=== PATIENT | male | born 1990 | race Caucasian/White ===

== ENCOUNTER 2020-05-18 17:10 | Emergency (ER) | payer BC, SELFPAY ==
[2020-05-18 17:36] VITALS: BP 139/95; PULSE 95; RESP 19; TEMP 36.6; O2SAT 98; BMI 20.3
--- NOTE | 2020-05-18 17:40 | HMH.EDUTC ---
[facility] [place] Clinical Impression: Encounter for laboratory testing for COVID-19 virus, Exposure to COVID-19 virus Disposition: Home, Self-Care Condition on Discharge: Good Instructions: Preventing the Spread of Coronavirus Discharge Instructions Additional Instructions: *Monitor Temp, Over the counter Motrin or Tylenol as directed/as needed Tylenol every 4 hours and Motrin every 6 hours (as long as your family doctor has told you that you can take it) for fever or pain. and straight to ER if unable to lower temp less than 101.0 after medication given *Warm salt water gargles may help to soothe the throat *Throat Lozenges *Warm fluids like tea with honey may help to soothe the throat *Sleep elevated *Humidifier/Vaporizer Follow up IMMEDIATELY for new or worsening symptoms or no Noticeable improvement over the next 48-72 hours. 911 for difficulty breathing or swallowing You was tested for today for COVID19 your test result should be back in the next 24-48 hours, you may call back on Friday to see if your test results are back and the result You was given a handout with instructions for Self Quarantine and Self isolation for while you wait on test results and what to do if they are positive Referrals: PCP,No [Primary Care Provider] - As needed Forms: Work/School Release Time of Disposition: 17:49 Medical Decision Making - Twan Inquiry Pt receiving controlled substance: No Twan was queried for this patient: No Vital Signs: 05/18/20 17:36 Temperature 97.9 F Temperature Source Oral Pulse Rate [Right Brachial] 95 H Respiratory Rate 19 Blood Pressure [Right Arm] 139/95 H Blood Pressure Mean [Right Arm] 109 Blood Pressure Source [Right Arm] Automatic Cuff Blood Pressure Position [Right Arm] Sitting 02 Sat by Pulse Oximetry 98 Oxygen Delivery Method Room Air Orders (Tests/Meds): ORDERS Category Date Time Status Covid-19 Nasal PCR Sendout [facility] Stat Lab 05/18/20 17:21 Ordered [facility] [place] HPI - General Stated complaint: COVID Exposure Time Seen by Provider: 05/18/20 17:40 Mode of Arrival: Ambulatory Source of Information: Patient Limitations: No Limitations Description of Symptoms (Recalled from Triage Doc. by RN): PATIENT REQUESTING COVID TEST D/T EXPOSURE. 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 and they are having him get tested States that he is not having any symptoms but works with the and they travel alot - Related Data Allergies Allergy/AdvReac Type Severity Reaction Status Date / Time No Known Allergies Allergy Verified 05/18/20 17:39 - Worker's Comp Is this a Worker's Comp case?: No [facility] History - Hepatitis A Screen Drug use history?: No High risk sexual behaviors?: No History of sexually transmitted infection?: No Currently employed?: No Childcare worker?: No Do you have indoor plumbing?: Yes Do you have electricity?: Yes Attestation statement:: This patient has been screened for Hepatitis A risk factors. I have reviewed the patient's past medical history: Yes - Social History Alcohol Intake: never Occupational Status: other ROS Obtained: Yes All systems reviewed & no additional complaints, Yes Systems reviewed as appropriate & no additional complaints - Constitutional Constitutional: Reports system reviewed and no additional complaints, except as docu, Denies body ache, Denies chills, Denies fever(s), Denies headache(s) - ENT Ears, Nose, Mouth, and Throat: Reports system reviewed and no additional complaints, except as docu, Denies nasal congestion, Denies nasal discharge, Denies sore throat - Cardiovascular Cardiovascular: R
[2020-05-18 17:59] VITALS: BP 139/95; PULSE 95; RESP 19; TEMP 36.6; O2SAT 98
[2020-05-20 16:08] LABS: Covid-19 Nasal PCR Sendout Lex Not Detected
== END 2020-05-18 18:00 | disposition home or self-care (01) ==
PROVIDERS: Emergency Provider Nurse Practitioner
DX: Z20.818 Contact with and (suspected) exposure to other bacterial communicable diseases (principal)
CPT/HCPCS: 99201; U0004

== ENCOUNTER 2023-09-15 20:55 | Inpatient (IN) | payer BC, SELFPAY ==
[2023-09-15] VITALS (7 sets, daily range): BP systolic 92–116; BP diastolic 63–85; PULSE 71–87; RESP 14–18; TEMP 36.2–36.6; O2SAT 97–99; BMI 21.3
--- NOTE | 2023-09-15 20:56 | PC.NURSE ---
EKG delayed due to another CP that came in at same time
--- NOTE | 2023-09-15 21:04 | XR_ITS ---
PROCEDURE INFORMATION: Exam: XR Chest Exam date and time: 09/15/2023 9:02 PM Age: 32 years old Clinical indication: Sternal or substernal pain; Additional info: Chest pain TECHNIQUE: Imaging protocol: Radiologic exam of the chest. Views: 2 views. COMPARISON: No relevant prior studies available. FINDINGS: Lungs: Normal pulmonary expansion. Pulmonary vasculature grossly normal. No gross pulmonary infiltrates or edema pattern. Pleural spaces: No pleural effusion. No pneumothorax. Heart/Mediastinum: Heart size normal. No tracheal/mediastinal shift. Bones/joints: No acute osseous abnormalities are identified. IMPRESSION: No acute thoracic process.
--- NOTE | 2023-09-15 21:06 | ECG_ITS ---
APPROVED REPORT Exam: Resting ECG HR:71 bpm ECG Measurements Heart Rate 71 AXES OH 135 P 62 QRSd 90 QRS 78 QT 343 T 62 QTc 366 Conclusion SINUS RHYTHM WITH MARKED SINUS ARRHYTHMIA BORDERLINE ECG UNCONFIRMED REPORT Electronically signed by : SATYA DILLON, 09/16/2023 08:25:23
--- NOTE | 2023-09-15 21:12 | ED_ITS ---
Discharge Plan Disposition Patient Disposition: Admitted Prescriptions Prescriptions: No Action No Known Home Medications Clinical Impressions Clinical Impression: Myopericarditis Discharge ED Provider: Babatunde Addison [facility] General Chief Complaint: Chest Pain Stated Complaint: CP Time Seen by Provider: 09/15/23 20:59 Mode of Arrival: Family Vehicle Source of Information: Patient Limitations: No Limitations Description of Symptoms (Recalled from ER Triage Doc. by RN): presents with ongoing chest discomfort that patient isolates to the mid-sternum, denying radiation to other location. states his daughter had flu b during the last cou ple of weeks, and he spent the day yesterday vomiting intermittently; the chest discomfort started and he 'thought he had just pulled something'. Continued throughout today, no longer accompanied by nausea. No PMH. No PSH. States he was sitting in his office at the time it began. Denies cough congestion. AFebrile. Took tylenol/ibu a couple of hours ago along with an antacid. History of Present Illness HPI narrative: Patient is a 32-year-old male presents today with chest pain. Denies any cough but did have a fever of 100.5 earlier today. Recently had nausea vomiting and diarrhea on Friday states he was vomiting quite a bit of bile at that time and had some burning but no symptoms have since resolved. No exertional complaints nonradiating no diaphoresis or significant dyspnea associated with this. No history of any blood clotting. States he recently was on a plane ride but was only 1 to 2 hours no leg swelling no hemoptysis no history of DVT or PE. No family history of any sudden cardiac or any other significant family history. He denies any cardiopulmonary history as well. Took 40 mg of ibuprofen 2 hours prior to arrival. No oppositionality to this does have a little bit of worsening pain with inspiration. Related Data Home Medications Medication Instructions Recorded Confirmed No Known Home Medications 09/15/23 09/15/23 Allergies Allergy/AdvReac Type Severity Reaction Status Date / Time No Known Allergies Allergy Verified 05/18/20 17:39 [facility] Disclaimer: The information contained in this section may have been updated after the patient was seen, as this information can be updated by other users. Social History Smoking Status: Unknown if ever smoked alcohol intake: never current occupational status: other Travel in the last 8 weeks: None ROS Obtained: Yes All systems reviewed & no additional complaints except as documented Physical Exam General General appearance: alert Respiratory Respiratory exam: Present normal lung sounds bilaterally Cardiovascular Cardiovascular exam: Present regular rate Neurological Exam Neurological exam: Present alert and oriented X3 HEART Score HEART Score HEART Score assessment performed?: Yes History (anamnesis): Slightly suspicious ECG: Normal Age: <45 years Risk factors: No known risk factors Troponin: > 3x normal limit HEART Score: 2 Procedures Miscellaneous Procedure Procedure Performed: Limited cardiac ultrasound Indication: Chest pain Identified structures: The heart was visualized in the parasternal long axis, parastenal short axis, apical four chamber and subxyphiod views. The IVC was visualized in the short axis and long axis at its entry into the right atrium. Findings: No pericardial effusion no depression of LVEF no significant right heart strain Impression: Normal bedside limited ultrasound of the heart Images were saved to permanent archive The study was technically adequate CPT: 55586-32 This study was performed by me, and I personally interpreted all images/videos. Based on my clinical judgement, these images were adequate and did not necessitate further imaging. Critical Care Critical Care Time Critical Care Time: Yes Attestation: On 09/15/23, the high probability of a clinically significant, sudden or life threatening deterioration of the following system(s) required my full and direct attention, intervention and personal management. The time I documented below is in addition to time spent performing reported procedures but includes the following listed in this critical care notation. Total Time Total Critical Care Time: 35 Medical Decision Making Twan Inquiry Pt receiving controlled substance: No Vital Signs Vital Signs: 09/15/23 20:58 Temperature 97.2 F L Temperature Source Oral Pulse Rate [Right Brachial] 74 Respiratory Rate 16 Blood Pressure [Right Arm] 116/85 Blood Pressure Mean [Right Arm] 95 Blood Pressure Source [Right Arm] Automatic Cuff Blood Pressure Position [Right Arm] Sitting 02 Sat by Pulse Oximetry 99 Oxygen Delivery Method Room Air Lab Data Lab results reviewed: Yes I reviewed the patient's lab results. Labs: Lab Results 09/15/23 21:00: WBC 10.9 H, RBC 4.74, Hgb 13.5 L, Hct 40.0 L, MCV 84.5, MCH 28 .5, MCHC 33.7, RDW 12.9, Plt Count 258, MPV 7.8, Neut % (Auto) 77.0, Lymph % (Auto) 16.8, Mcpherson % (Auto) 5.7, Eos % (Auto) 0.3, Baso % (Auto) 0.3, Neut # (Auto) 8.4 H, Lymph # (Auto) 1.8, Mcpherson # (Auto) 0.6, Eos # (Auto) 0.0, Baso # (Auto) 0.0, Sodium 134 L, Potassium 3.3 L, Chloride 100, Carbon Dioxide 27, Anion Gap 10.3, BUN 9, Creatinine 0.80, Estimated Creat Clear 116, Estimated GFR 112, Est GFR ( Amer) 136, Glucose 106 H, Calcium 8.9, Total Bilirubin 1.1, AST 49, ALT 30, Alkaline Phosphatase 74, Troponin I 4.79 H, C-Reactive Protein 58.7 H, Total Protein 6.5, Albumin 4.1, Globulin 2.4, Albumin/Globulin Ratio 1.7 09/15/23 21:00 09/15/23 21:00 Response Orders (Tests/Meds): ED MEDICATIONS Generic Name Dose Route Start Last Admin Trade Name Freq PRN Reason Stop Dose Admin Lactated Ringer's 1,000 mls @ 999 mls/hr 09/15/23 22:14 09/15/23 22:17 Lactated Ringer's 1000 Ml Bag IV 09/15/23 23:14 999 mls/hr .Q1H1M ONE Administration Ondansetron HCl 4 mg 09/15/23 22:14 09/15/23 22:17 Ondansetron 4mg/2ml Vial IV 09/15/23 22:15 4 mg ONCE ONE Administration Discontinued Medications Generic Name Dose Route Start Last Admin Trade Name Freq PRN Reason Stop Dose Admin Belladonna Alkaloids 60 ml 09/15/23 21:08 09/15/23 21:15 Belladonna Alkaloids 60 Ml Ml PO 09/15/23 21:09 60 ml ONCE ONE Administration Colchicine 0.6 mg 09/15/23 21:53 09/15/23 22:17 Colchicine 0.6mg Tablet PO 09/15/23 21:54 0.6 mg ONCE ONE Administration Morphine Sulfate 4 mg 09/15/23 21:52 09/15/23 22:17 Morphine 4mg/Ml Syringe IV 09/15/23 21:53 4 mg ONCE ONE Administration ORDERS Category Date Time Status POCUS Point of Care (ER Only) Stat Exams 09/15/23 21:43 Ordered XR chest 2V Stat Exams 09/15/23 21:04 Completed CRP [C-Reactive Protein] Stat Lab 09/15/23 21:00 Completed Complete Blood Count Auto Diff Stat Lab 09/15/23 21:00 Completed Comprehensive Metabolic Panel Stat Lab 09/15/23 21:00 Completed ESR [Erythrocyte Sedimentation Rate] Stat Lab 09/15/23 21:00 Received Full Resp Panel w/COVID ([facility]) Routine Lab 09/15/23 21:44 Received Trop I [Troponin I] Stat Lab 09/15/23 21:00 Completed Troponin I Q3H Lab 09/16/23 00:15 Ordered Troponin I Q3H Lab 09/16/23 03:15 Ordered ECG Data Tracing #1: Attestation: I reviewed this ECG and interpreted as documented below: ECG Narrative: Ventricular rate of 71 no acute ischemic changes noted no evidence of pericarditis or significant ventricular ectopy or other ectopy no conduction abnormalities noted there is normal axis there is a sinus arrhythmia this is nonspecific MDM Narrative Medical Decision Narrative: Patient is a 32-year-old male presents today with chest pain. Does have a slight pleuritic component to this had a low-grade fever prior to arrival with nausea vomiting diarrhea preceded this. Differential includes myocarditis pericarditis pleurisy pneumonia esophageal pathology such as reflux or esophagitis in the setting of recent gastroenteritis. A GI cocktail has been ordered both for diagnostic and therapeutic reasons. Incredibly unlikely that this is emergent medical condition. Patient is PERC negative will not workup for pulmonary embolism further. EKG was performed which I first interpreted which did not show any significant abnormality. Will be documented above. Single troponin with 8 hours of constant symptoms will rule out acute coronary syndrome any myocardial involvement as well. Chest x-ray will also be performed and will reassess after this workup. Chest x-ray performed which I personally interpreted which shows no acute cardiopulmonary abnormality. Assessment 10:18 PM patient had no improvement with GI cocktail at this point troponin came back significantly elevated. After further discussion I had with the patient he does seem to have had a recent exposure to his daughter who had flu B he also has had some improvement with sitting forward and worsening with lying back and has slight pleuritic component to this. This is most likely myopericarditis in the setting of a recent flu exposure or viral exposure with his other symptoms that he had recently. He is already had NSAIDs added a dose of colchicine on and gave him morphine for further symptomatic control. Limited bedside ultrasound was also done which showed no pericardial effusion and no significant heart failure or LVEF depression. I discussed the case with Dr. Clements he agreed with intervention they will be consulted tomorrow and the patient will need a formal echo tomorrow. I also discussed with William with hospital medicine who understands this plan patient also agreeable to this plan and was admitted in stable condition. Patient after further review of EKGs I do think that there is some VT depression throughout and mild VT elevation in aVR which is consistent with pericarditis. Again still no evidence of ischemia both from historical standpoint or an EKG standpoint.
[2023-09-15] MEDS: BELLADONNA ALKALOIDS 60 ML ML PO (21:15)
[2023-09-15 21:19] LABS: Basophils % 0.3 % (0.1-2.0); Chloride 100 mmol/L (98-107); Eosinophils % 0.3 % (0.1-12.0); Hemoglobin 13.5 g/dL (14.1-18.0); Lymphocytes # 1.8 K/mm3 (0.7-4.5); Lymphocytes % 16.8 % (10-50); Mean Corpuscular HGB Conc 33.7 g/dL (31.8-35.4); Mean Corpuscular Hemoglobin 28.5 pg (27.0-31.2); Mean Corpuscular Volume 84.5 fl (80-94); Mean Platelet Volume 7.8 fl (7.4-10.4); Monocytes # 0.6 K/mm3 (0.1-1.0); Monocytes % 5.7 % (1.7-9.3); Neutrophils # 8.4 K/mm3 (1.8-7.8); Platelet Count 258 K/mm3 (142-424); Red Blood Count 4.74 M/mm3 (4.60-6.20); Red Cell Distribution Width 12.9 % (11.5-17.5); White Blood Count 10.9 K/mm3 (4.8-10.8)
[2023-09-15 21:20] LABS: Potassium 3.3 mmoL/L (3.5-5.1); Sodium 134 mmol/L (136-145)
[2023-09-15 21:22] LABS: Alanine Aminotransferase 30 U/L (12-78); Aspartate Amino Transferase 49 U/L (17-59); Blood Urea Nitrogen 9 mg/dl (9-20); Creatinine Clearance Estimated 116 mL/min (50-200); Estimated Glomerular Filt Rate 112 ml/min (>60); GFR (African American) 136 ML/MIN (>60)
[2023-09-15 21:23] LABS: Albumin Level 4.1 g/dl (3.5-5.0); Albumin/Globulin Ratio 1.7 (1.1-1.8); Alkaline Phosphatase 74 U/L (38-126); Anion Gap 10.3 mEq/L (5-15); Bilirubin,Total 1.1 mg/dl (0.2-1.3); Calcium 8.9 mg/dl (8.4-10.2); Carbon Dioxide 27 mmol/L (22.0-30.0); Globulin 2.4 g/dL (1.3-3.2); Glucose 106 mg/dl (74-100); Total Protein,Serum 6.5 g/dl (6.3-8.2)
[2023-09-15 21:42] LABS: Troponin I 4.79 ng/ml (0.00-0.034)
--- NOTE | 2023-09-15 21:43 | PC.NURSE ---
received call from quentin in lab; trop 4.79. notified JERRICA Addison MD. at bedside.
[2023-09-15 21:52] LABS: Adenovirus,PCR Not Detected (NotDetected); Coronavirus 19, PCR Not Detected (NotDetected); Coronavirus 229E Not Detected (NotDetected); Coronavirus NL63 Not Detected (NotDetected); Coronavirus OC43 Not Detected (NotDetected); Coronovirus HKU1,PCR Not Detected (NotDetected); Human Metapneumovirus Not Detected (NotDetected); Influenza A, PCR Not Detected (NotDetected); Influenza AH1, 2009 Not Detected (NotDetected); Influenza AH1, PCR Not Detected (NotDetected); Influenza AH3,PCR Not Detected (NotDetected); Influenza B, PCR Not Detected (NotDetected); Parainfluenza 1, PCR Not Detected (NotDetected); Parainfluenza 2, PCR Not Detected (NotDetected); Parainfluenza 3, PCR Not Detected (NotDetected); Parainfluenza 4, PCR Not Detected (NotDetected); Respiratory Syncytial Virus Not Detected (NotDetected); Rhinovirus/Enterovirus Not Detected (NotDetected)
[2023-09-15 22:08] LABS: C-Reactive Protein 58.7 mg/L (0-4)
--- NOTE | 2023-09-15 22:08 | PC.NURSE ---
on phone with hospitalist
[2023-09-15] MEDS: COLCHICINE 0.6MG TABLET 0.599999999999999978 MG PO (22:17)
[2023-09-15] MEDS: ONDANSETRON 4MG/2ML VIAL 4 MG IV (22:17)
[2023-09-15] MEDS: LACTATED RINGERS 1000ML 1,000 ML 999 ML IV (22:17)
[2023-09-15] MEDS: MORPHINE 4MG/ML SYRINGE 4 MG IV (22:17)
--- NOTE | 2023-09-15 22:18 | PC.NURSE ---
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
--- NOTE | 2023-09-15 22:40 | PC.NURSE ---
Patient arrived to unit via wheelchair at this time
[2023-09-15 22:46] LABS: Erythrocyte Sedimentation Rate 16 mm/hr (0-15)
[2023-09-15 23:27] LABS: Creatine Kinase 218 U/L (55-170); Magnesium 1.9 mg/dl (1.6-2.3)
--- NOTE | 2023-09-15 23:36 | EXP.HP ---
History of Present Illness *Admission Date: 09/15/23 *Reason for visit:: Myopericarditis *History of present illness: 32 year old male presented to the ED for c/o CP that started at 1 p.m. The pt states the pain was located in the center of his chest. PMHX of GERD. Pt states he had a 24 hour GI virus over the weekend. He was having nausea, vomiting, and diarrhea. The pt his ED workup reveals a ESR of 16, potassium of 3.3, CK of 218, CRP of 58.7. His initial troponin is 4.79. His chest xray is unremarkable. The ED physician consulted the Hospitalist team for further medical management. The pt will have an echo ordered for the morning and a cardiology consult placed. He was given colchicine and morphine in the ED. The pt reports taking Motrin prior to arrival to ED. [facility] Disclaimer: The information contained in this section may have been updated after the patient was seen, as this information can be updated by other users. Medical History (Updated 09/16/23 @ 14:54 by Dina Sutton APRN) Elevated troponin Non-STEMI (non-ST elevated myocardial infarction) Viral myocarditis Social History (Updated 09/15/23 @ 22:55 by Sandra Dugan RN) Smoking Status: Unknown if ever smoked alcohol intake: never current occupational status: employed and other Travel in the last 8 weeks: None Review of Systems Review of Systems Review of systems:: pertinent systems reviewed and negative unless documented below *Cardiovascular Cardiovascular: Reports chest pain Meds Home Medications and Allergies Home Medications Medication Instructions Recorded Confirmed Type No Known Home Medications 09/15/23 09/15/23 History New Prescriptions to Start Prescriptions: Allergies Allergy/AdvReac Type Severity Reaction Status Date / Time No Known Allergies Allergy Verified 05/18/20 17:39 Exam Data for Last 24 hours Vital signs and Labs for Last 24 Hours: Temp Pulse Resp BP Pulse Ox O2 Del Method 97.8 F 71 18 95/65 L 97 Room Air 09/15/23 22:28 09/15/23 23:22 09/15/23 23:11 09/15/23 23:11 09/15/23 23:11 09/15/23 23:11 Laboratory Results - last 24 hr 09/15/23 21:00: WBC 10.9 H, RBC 4.74, Hgb 13.5 L, Hct 40.0 L, MCV 84.5, MCH 28.5, MCHC 33.7, RDW 12.9, Plt Count 258, MPV 7.8, Neut % (Auto) 77.0, Lymph % (Auto) 16.8, Carlton % (Auto) 5.7, Eos % (Auto) 0.3, Baso % (Auto) 0.3, Neut # (Auto) 8.4 H, Lymph # (Auto) 1.8, Carlton # (Auto) 0.6, Eos # (Auto) 0.0, Baso # (Auto) 0.0, ESR 16 H, Sodium 134 L, Potassium 3.3 L, Chloride 100, Carbon Dioxide 27, Anion Gap 10.3, BUN 9, Creatinine 0.80, Estimated Creat Clear 116, Estimated GFR 112, Est GFR ( Amer) 136, Glucose 106 H, Calcium 8.9, Magnesium 1.9, Total Bilirubin 1.1, AST 49, ALT 30, Alkaline Phosphatase 74, Total Creatine Kinase 218 H, Troponin I 4.79 H, C-Reactive Protein 58.7 H, Total Protein 6.5, Albumin 4.1, Globulin 2.4, Albumin/Globulin Ratio 1.7 I & O for Last 24 hours: Intake & Output 09/12/23 09/13/23 09/14/23 09/15/23 23:59 23:59 23:59 23:59 Weight 61.83 kg Constitutional Constitutional: no acute distress *Routine HEENT Exam Head: Present normocephalic Eye: Present EOMI ENT: Present mucous membranes moist *Routine Neck Exam Neck: Present full ROM *Routine Respiratory Exam Respiratory: Present symmetric chest movement *Routine Cardiovascular Exam Cardiovascular: Present RRR *Routine Abdominal Exam Abdominal: Present soft and normoactive bowel sounds; Absent tenderness *Routine Rectal Exam Rectal:: deferred *Routine Genitalia Exam Genitalia:: deferred *Routine Extremities Exam Extremities: Present full ROM *Routine Skin Exam Skin: Present intact *Routine Neurological Exam Neurological: Present alert and oriented X3 Assessment and Plan *Assessment and plan (1) Myopericarditis: Status: Acute Category: Medical Code(s): I31.9 - Disease of pericardium, unspecified (2) Hypokalemia: Status: Acute Category: Medical Code(s): E87.6 - Hypokalemia (3) GERD (gastroesophageal reflux disease): Status: Acute Category: Medical Code(s): K21.9 - Gastro-esophageal reflux disease without esophagitis Plan 32 year old male presented to the ED for c/o CP that started at 1 p.m. The pt states the pain was located in the center of his chest. PMHX of GERD. Pt states he had a 24 hour GI virus over the weekend. He was having nausea, vomiting, and diarrhea. The pt his ED workup reveals a ESR of 16, potassium of 3.3, CK of 218, CRP of 58.7. His initial troponin is 4.79. His chest xray is unremarkable. The ED physician consulted the Hospitalist team for further medical management. The pt will have an echo ordered for the morning and a cardiology consult placed. He was given colchicine and morphine in the ED. The pt reports taking Motrin prior to arrival to ED. MYOPERICARDITIS -Presented with chest pain that started at 1 p.m. Recent viral illness on Friday lasting 24 hrs -ED workup reveals a ESR of 16, potassium of 3.3, CK of 218, CRP of 58.7. -His initial troponin is 4.79 -> will continue to trend -Cardiology consult placed, thank you for the help!!! -continue colchicine and Motrin -Echo pending for the morning HYPOKALEMIA -K 3.3 -replace with 20 mEq -repeat bmp in the morning GERD -pt states he takes omeprazole at home around 3 times a week prior to eating spicy foods FULL CODE NPO @ MIDNIGHT DVT: SCD Rounded on patient after nurse practitioner. Personally examined and interviewed patient. Agree with exam findings and care plan as documented.
[2023-09-16] VITALS (20 sets, daily range): BP systolic 83–116; BP diastolic 48–79; PULSE 61–93; RESP 14–18; TEMP 36.8–37.1; O2SAT 95–100; BMI 21.7
[2023-09-16] MEDS: POTASSIUM CHLORIDE 20MEQ TAB 20 MEQ PO (00:35)
--- NOTE | 2023-09-16 00:47 | PC.NURSE ---
Reported critical trop 15.30 to FRED Thomas at this time. No new orders received.
--- NOTE | 2023-09-16 04:49 | PC.NURSE ---
Patient was new admit this shift. Patient voiced no chest pain thus far in shift. Patient's HR ranges from 65-78. Patient remains A/O x3. Patient is able to ambulate independently to bathroom. Call light within reach.
[2023-09-16 09:24] LABS: Basophils % 0.8 % (0.1-2.0); Eosinophils # 0.1 K/mm3 (0.0-0.4); Eosinophils % 1.1 % (0.1-12.0); Hematocrit 38.5 % (42.0-52.0); Lymphocytes % 38.3 % (10-50); Mean Corpuscular HGB Conc 33.7 g/dL (31.8-35.4); Mean Corpuscular Hemoglobin 28.4 pg (27.0-31.2); Mean Corpuscular Volume 84.2 fl (80-94); Mean Platelet Volume 8.6 fl (7.4-10.4); Monocytes # 0.4 K/mm3 (0.1-1.0); Monocytes % 8.1 % (1.7-9.3); Neutrophils # 2.7 K/mm3 (1.8-7.8); Neutrophils % 51.7 % (37.0-80.0); Platelet Count 251 K/mm3 (142-424); Red Blood Count 4.57 M/mm3 (4.60-6.20); Red Cell Distribution Width 12.8 % (11.5-17.5); White Blood Count 5.1 K/mm3 (4.8-10.8)
[2023-09-16 09:34] LABS: Alanine Aminotransferase 29 U/L (12-78); Albumin Level 3.7 g/dl (3.5-5.0); Albumin/Globulin Ratio 1.6 (1.1-1.8); Alkaline Phosphatase 55 U/L (38-126); Anion Gap 7.7 mEq/L (5-15); Aspartate Amino Transferase 78 U/L (17-59); Bilirubin,Total 1.1 mg/dl (0.2-1.3); Blood Urea Nitrogen 6 mg/dl (9-20); Calcium 8.7 mg/dl (8.4-10.2); Carbon Dioxide 29 mmol/L (22.0-30.0); Chloride 105 mmol/L (98-107); Creatinine Clearance Estimated 117 mL/min (50-200); Estimated Glomerular Filt Rate 112 ml/min (>60); GFR (African American) 136 ML/MIN (>60); Globulin 2.3 g/dL (1.3-3.2); Glucose 93 mg/dl (74-100); Potassium 3.7 mmoL/L (3.5-5.1); Sodium 138 mmol/L (136-145)
[2023-09-16] MEDS: COLCHICINE 0.6MG TABLET 0.599999999999999978 MG PO (09:34)
--- NOTE | 2023-09-16 12:59 | CT_ITS ---
APPROVED REPORT [employer] Preflight: CLINICAL INDICATION Chest Pain, elevated troponin TECHNIQUE Image Acquisition: A 128 slice MDCT scanner (Molecular Imaginga View) was used for data acquisition. A noncontrast coronary calcium scan was performed. A CT attenuation threshold of 130 Hounsfield units (HU) was used for the detection of calcium in contiguous voxels of 1 sq mm in area to be counted as individual lesions. Bolus tracking in the ascending aorta with a threshold of 180 HU was performed. Immediately afterwards, ECG synchronized cardiac CT was then performed from the cardiac base to apex using retrospective gating with ECG tube current modulation. A total of 85 mL of Isovue 370 mg/mL contrast medium was administered at 5 mL/sec followed by a saline flush using a biphasic injection protocol. A tube voltage of 120 KVp was used. The patient received the following medications prior to the cardiac CT. 25 mg of oral metoprolol 15 mg of intravenous metoprolol 15 mg of oral ivabradine 0.4 mg of sublingual nitroglycerin The average heart rate at the time of acquisition was 60 bpm and regular. Image Reconstruction Transaxial images were reconstructed at 0.67 mm slide thickness. Data was reviewed interactively on an advanced workstation capable of 2 and 3-dimensional displays in all conventional reconstruction formats, including multiplanar reformations, maximum intensity projections, curved multiplanar reformations, and volume rendered reconstructions. When applicable, selected routine images describing the relevant coronary anatomy and pathology were saved and sent to PACS. Complications None Technical Quality Overall image quality was good. Coronary artery opacification was adequate. Total DLP (Dose-Length Product) is 1491.8 mGy-cm. The reported value represents the total of one or more individual components during the CT acquisition of this date and at this time, and as such, the same value may appear in more than one CT report depending on the interpreting/reporting physicians. COMPARISON None FINDINGS CT Coronary Calcium Scoring LMA (Left Main Artery) = 0 LAD (Left Anterior Descending) = 0 LCX (Left Coronary Circumflex) = 0 RCA (Right Coronary Artery) = 0 Total Calcium Score = 0 using the AJ-130 method. The interpretation of the calcium heart score is based on the following continuum*: 0 = no calcified plaque detected (risk of coronary artery disease is very low ??? less than 5%) 1-10 = calcium detected in extremely minimal levels (risk of coronary diseases is still low ??? less than 10%) 11-100 = mild levels of plaque detected with certainty (mild or minimal narrowing of heart arteries is likely) 101-400 = definite,at least moderate levels of plaque detected (relatively high risk of a heart attack within 3-5 years) >401-999 = extensive levels of plaque detected (high risk of heart attack, high levels of vascular disease are present, high likelihood of at least one significant coronary narrowing) *The calcium heart score quantifies the burden of coronary calcification/plaque in the coronary arteries. The calcium heart score is not able to evaluate the presence or burden of non-calcified (i.e. soft) plaque. There is no identifiable calcification in the aortic valve, mitral annulus or mitral valve, pericardium, or myocardium. Coronary CT Angiography The coronary arterial system is right dominant. Quantitative Stenosis Grading: Left Main (LM): The left main originates normally from the left sinus of Valsalva. The LM bifurcates into the left anterior descending artery and left circumflex artery. The LM is patent with no evidence of atherosclerosis. Left Anterior Descending (LAD) and Diagonal Branches: The LAD gives off 2 diagonal branch(es). The LAD and its branches are patent with no evidence of atherosclerosis. There is no evidence of LAD-myocardial bridge. Left Circumflex (LCX) and Obtuse Marginals (OM): The LCX gives off 1 Obtuse Marginal (OM) branch. The LCX and its branches are patent with no evidence of atherosclerosis. Right Coronary Artery (RCA): The RCA originates normally from the right sinus of Valsalva. The RCA gives off a posterior descending artery (PDA) and posterolateral (PL) branches. The RCA and its branches are patent with no evidence of atherosclerosis. Non-Coronary Cardiac Findings: Analysis of the left ventricular (LV) structure and function was performed after 3-D reconstruction of the LV from axial images, with user-corrected automatic contouring for assessment of LV volumes and user-defined reconstruction from oblique planes for measurement of 3-D cardiac structure and function. -The left ventricle systolic function cannot be calculated due to technical difficulty during acqusition of the study images. -There is no left atrial appendage filling defect. Two right pulmonary veins and two left pulmonary veins drain normally into the left atrium. -No pericardial thickening or calcification. -Central and branch pulmonary arteries in the [id number] are unremarkable. -Thoracic aorta within the visualized thoracic aortic-branches in the [id number] is unremarkable. Extracardiac Structures No significant extra-cardiac findings. Note, however, that this study is focused on the cardiac findings. IMPRESSION -No coronary calcification with an Agatston score = 0 using the AJ-130 method. -No evidence of significant flow-limiting atherosclerosis of the coronary arteries. -No evidence of coronary anomalies or myocardial bridge. -CAD-RADS 0. Management recommendations per ACC/AHA guidelines*, as clinically appropriate. *Recommendations: CAD RADS 0: Reassurance. Consider non-atherosclerotic causes of chest pain. CAD RADS 1: Consider non-atherosclerotic causes of chest pain. Consider preventive therapy and risk factor modification. CAD RADS 2: Consider non-atherosclerotic causes of chest pain. Consider preventive therapy and risk factor modification, particularly for patients with nonobstructive plaque in multiple segments. CAD RADS 3: Consider further functional testing. Consider symptom-guided anti-ischemic and preventive pharmacotherapy as well as risk factor modification per published guideline statements. CAD RADS 4A: Consider further functional testing or invasive coronary angiography with revascularization per published guideline statements. Consider symptom-guided anti-ischemic and preventive pharmacotherapy as well as risk factor modification per published guideline statements. CAD RADS 4B: Invasive coronary angiography recommended with revascularization per published guideline statements. Consider symptom-guided anti-ischemic and preventive pharmacotherapy as well as risk factor modification per published guideline statements. CAD RADS 5: Consider invasive angiography and/or viability assessment with revascularization per published guideline statements. Consider symptom-guided anti-ischemic and preventive pharmacotherapy as well as risk factor modification per published guideline statements. CRITICAL RESULT None COMMUNICATION Per this written report The coronary and cardiac findings of this CCTA were reviewed, reported, and signed by Roland Meeks MD ([employer]) Conclusion Electronically signed by : Patti Meeks MD 09/16/2023 18:02:13
[2023-09-16] MEDS: IVABRADINE 7.5 MG 15 MG PO (13:09)
--- NOTE | 2023-09-16 13:09 | PC.NURSE ---
1309 meds given for CTA, HR 104
[2023-09-16] MEDS: METOPROLOL TARTRATE 25MG TABLET 25 MG PO (13:10)
[2023-09-16] MEDS: NITROGLYCERIN 0.4MG SL TABLET 0.400000000000000022 MG SL (13:11)
[2023-09-16] MEDS: METOPROLOL TARTRATE 5MG/5ML VIAL 5 MG IV ×3 (14:05→15:05)
--- NOTE | 2023-09-16 14:46 | EXP.CARD.CON ---
History of Present Illness History of Present Illness Consult date: 09/16/23 Requesting physician: Lorraine Gambino Consult reason: chest pain Chief complaint: chest pain History of present illness: This is a 32-year-old white gentleman who presented to the emergency department with complaints of chest pain. He states that he was at work yesterday when he had sudden onset of chest pain in the center of his chest. He describes it as a burning heartburn sensation. He states that he took an acids and Tylenol with no improvement in the pain. The patient states that he decided to come to the emergency department last night around 8:30 PM. He states that when he was given the morphine in the emergency department is when he had resolution of the chest pain. Nothing worsened or improved the pain He states that the pain did not radiate. He states that he did have some some diaphoresis and clamminess associated with the chest pain. He denies any shortness of breath or nausea. However, he does report over the weekend that he did have a GI bug with some nausea vomiting and diarrhea. He states that he has never had symptoms like this before. He denies any fever, chills, PND or orthopnea. He denies any shortness of breath or lower extremity edema. He does report that sitting forward made the chest pain slightly better when he was asked this in the emergency department. [facility] Disclaimer: The information contained in this section may have been updated after the patient was seen, as this information can be updated by other users. Medical History (Updated 09/16/23 @ 14:54 by Dina Sutton APRN) Elevated troponin Non-STEMI (non-ST elevated myocardial infarction) Viral myocarditis Social History (Updated 09/15/23 @ 22:55 by Sandra Dugan RN) Smoking Status: Unknown if ever smoked alcohol intake: never current occupational status: employed and other Travel in the last 8 weeks: None Review of Systems Review of Systems Review of systems:: pertinent systems reviewed and negative unless documented below Constitutional Constitutional: Reports system reviewed and no additional complaints, except as documented Eyes Eyes: Reports system reviewed and no additional complaints, except as documented ENT Ears, Nose, Mouth, and Throat: Reports system reviewed and no additional complaints, except as documented *Cardiovascular Cardiovascular: Reports system reviewed and no additional complaints, except as documented, Reports chest pain, Reports chest pain at rest, Reports chest pain with activity, Reports diaphoresis and Denies radiating jaw, neck or arm pain *Respiratory Respiratory: Reports system reviewed and no additional complaints, except as documented *Gastrointestinal Gastrointestinal: Reports system reviewed and no additional complaints, except as documented *Genitourinary Genitourinary: Reports system reviewed and no additional complaints, except as documented *Musculoskeletal Musculoskeletal: Reports system reviewed and no additional complaints, except as documented Integumentary/Breasts Skin/Breast: Reports system reviewed and no additional complaints, except as documented *Neurologic Neurologic: Reports system reviewed and no additional complaints, except as documented Psychiatric Psychiatric: Reports system reviewed and no additional complaints, except as documented Endocrine Endocrine: Reports system reviewed and no additional complaints, except as documented Hematologic/Lymphatic Hematologic/Lymphatic: Reports system reviewed and no additional complaints, except as documented Allergic/Immunologic Allergic/Immunologic: Reports system reviewed and no additional complaints, except as documented Exam Data for Last 24 hours Vital signs and Labs for Last 24 Hours: Temp Pulse Resp BP Pulse Ox O2 Del Method 98.6 F 64 16 116/79 97 Room Air 09/16/23 12:00 09/16/23 14:35 09/16/23 12:00 09/16/23 12:00 09/16/23 12:00 09/16/23 13:00 Laboratory Results - last 24 hr 09/15/23 21:00: WBC 10.9 H, RBC 4.74, Hgb 13.5 L, Hct 40.0 L, MCV 84.5, MCH 28.5, MCHC 33.7, RDW 12.9, Plt Count 258, MPV 7.8, Neut % (Auto) 77.0, Lymph % (Auto) 16.8, [place] % (Auto) 5.7, Eos % (Auto) 0.3, Baso % (Auto) 0.3, Neut # (Auto) 8.4 H, Lymph # (Auto) 1.8, [place] # (Auto) 0.6, Eos # (Auto) 0.0, Baso # (Auto) 0.0, ESR 16 H, Sodium 134 L, Potassium 3.3 L, Chloride 100, Carbon Dioxide 27, Anion Gap 10.3, BUN 9, Creatinine 0.80, Estimated Creat Clear 116, Estimated GFR 112, Est GFR ( Amer) 136, Glucose 106 H, Calcium 8.9, Magnesium 1.9, Total Bilirubin 1.1, AST 49, ALT 30, Alkaline Phosphatase 74, Total Creatine Kinase 218 H, Troponin I 4.79 H, C-Reactive Protein 58.7 H, Total Protein 6.5, Albumin 4.1, Globulin 2.4, Albumin/Globulin Ratio 1.7 09/15/23 21:44: Chlamy pneumoniae PCR TNP, Adenovirus (PCR) Not detected, B. pertussis DNA (PCR) TNP, Coronavirus OC43 (PCR) Not detected, Coronavirus HKU1 (PCR) Not detected, Coronavirus 229E (PCR) Not detected, SARS-CoV-2 (PCR) Not detected, Coronavirus NL63 (PCR) Not detected, Human Metapneumovir PCR Not detected, Influenza A (H1) PCR Not detected, Influ A (H1N1/09) PCR Not detected, Influenza A (H3) PCR Not detected, Influenza Type A (PCR) Not detected, Influenza Type B (PCR) Not detected, M. pneumoniae (PCR) TNP, Parainfluenza 1 (PCR) Not detected, Parainfluenza 2 (PCR) Not detected, Parainfluenza 3 (PCR) Not detected, Parainfluenza 4 (PCR) Not detected, RSV (PCR) Not detected, Entero/Rhino (PCR) Not detected 09/16/23 00:15: Troponin I 15.30 H 09/16/23 03:15: Troponin I 16.70 H 09/16/23 09:12: WBC 5.1 D, RBC 4.57 L, Hgb 13.0 L, Hct 38.5 L, MCV 84.2, MCH 28.4, MCHC 33.7, RDW 12.8, Plt Count 251, MPV 8.6, Neut % (Auto) 51.7, Lymph % (Auto) 38.3, [place] % (Auto) 8.1, Eos % (Auto) 1.1, Baso % (Auto) 0.8, Neut # (Auto) 2.7, Lymph # (Auto) 2.0, [place] # (Auto) 0.4, Eos # (Auto) 0.1, Baso # (Auto) 0.0, Sodium 138, Potassium 3.7, Chloride 105, Carbon Dioxide 29, Anion Gap 7.7, BUN 6 L D, Creatinine 0.80, Estimated Creat Clear 117, Estimated GFR 112, Est GFR ( Amer) 136, Glucose 93, Calcium 8.7, Total Bilirubin 1.1, AST 78 H D, ALT 29, Alkaline Phosphatase 55, Total Protein 6.0 L, Albumin 3.7, Globulin 2.3, Albumin/Globulin Ratio 1.6 I & O for Last 24 hours: Intake & Output 09/13/23 09/14/23 09/15/23 09/16/23 23:59 23:59 23:59 23:59 Output Total 0 / 0 Balance 0 / 0 Weight 136 lb 5 oz 138 lb Constitutional Constitutional: no acute distress and average body habitus *Routine HEENT Exam Head: Present normocephalic and atraumatic ENT: Present mucous membranes moist *Routine Neck Exam Neck: Present supple, full ROM and normal carotid upstroke; Absent JVD, carotid bruit or lymphadenopathy *Routine Respiratory Exam Respiratory: Present CTA bilaterally, normal respiratory effort, able to speak in complete sentences and symmetric chest movement *Routine Cardiovascular Exam Cardiovascular: Present RRR, Normal S1 and Normal S2; Absent murmur or gallop *Routine Abdominal Exam Abdominal: Present soft and normoactive bowel sounds; Absent tenderness, distended or organomegaly *Routine Extremities Exam Extremities: Present full ROM, pulses intact and normal capillary refill; Absent cyanosis, clubbing or edema *Routine Skin Exam Skin: Present intact and warm; Absent erythema *Routine Neurological Exam Neurological: Present alert, oriented X3 and CN II-XII intact; Absent sensory deficit or motor deficit Routine Psychiatric Exam Psychiatric: Present normal affect Meds Home Medications and Allergies Home Medications Medication Instructions Recorded Confirmed Type No Known Home Medications 09/15/23 09/15/23 History New Prescriptions to Start Prescriptions: Allergies Allergy/AdvReac Type Severity Reaction Status Date / Time No Known Allergies Allergy Verified 05/18/20 17:39 Assessment and Plan *Assessment and plan (1) Elevated troponin: Status: Acute Category: Medical Code(s): R79.89 - Other specified abnormal findings of blood chemistry (2) Non-STEMI (non-ST elevated myocardial infarction): Status: Acute Category: Medical Code(s): I21.4 - Non-ST elevation (NSTEMI) myocardial infarction (3) Viral myocarditis: Status: Acute Qualifiers: Chronicity: acute Qualified Code(s): I40.0 - Infective myocarditis Category: Medical Code(s): B33.22 - Viral myocarditis Plan Plan: 1. The patient presented to the emergency department chest pain. He was found to have an elevated troponin. Will plan to proceed with a CCTA today to rule out ischemia and coronary artery disease. 2. Echocardiogram shows an ejection fraction of 45% with diffuse hypokinesis concerning for myocarditis. 3. Consider cardiac MRI after the CCTA to evaluate for the myocarditis. 4. The patient will be given metoprolol tartrate 25 mg x 1 dose, nitroglycerin 0.4 mg sublingual x 1 dose and ivabradine 15 mg p.o. x 1 dose in preparation for the CCTA. 5. If the patient's heart rate does not improve then we will give him metoprolol 5 mg IV every 15 minutes until his heart rate is 60 or below. 6. The patient was started on colchicine and ibuprofen for suspected viral myocarditis. We can continue this at this time. 7. Further recommendations will be made pending the patient's response to treatment and the results of the CCTA today. Thank you for the opportunity to help participate in the care of this patient. All recommendations and orders are per Dr. Meeks.
[2023-09-16] MEDS: 0.9 % SODIUM CHLORIDE 50 ML VIAL IV (15:17)
[2023-09-16] MEDS: IOPAMIDOL-370 (76%);100ML BOTTLE 100 ML IV (15:18)
[2023-09-16] MEDS: SODIUM CHLORIDE 0.9% 10ML SYR (RAD ONLY) 10 ML IV (15:18)
--- NOTE | 2023-09-16 17:29 | PC.NURSE ---
pt had CCTA today, meds given per order, HR down to 60, pt asymptomatic, BP became soft, but recovered well after procedure, no complaints of chest pain or SOA, tolerating cardiac diet now
--- NOTE | 2023-09-16 19:51 | P.PN_ITS ---
Subjective *Date: 09/16/23 *Time: 13:50 Interval history: Patient reports improvement in chest pain. No shortness of breath, nausea or vomiting. Afebrile overnight. Troponin elevated to 16.7. No events on telemetry. On room air. Medical Exam Vital signs and Labs for Last 24 Hours: Vital Signs Temp Pulse Pulse Resp BP BP Pulse Ox 09/16/23 18:46 09/16/23 17:00 09/16/23 16:00 69 09/16/23 15:00 09/16/23 15:15 74 98/55 L 09/16/23 15:05 61 83/48 L 09/16/23 15:00 67 88/54 L 09/16/23 15:28 98.6 F 68 16 97/63 L 98 09/16/23 15:30 78 98/66 L 09/16/23 14:55 65 95/63 L 09/16/23 14:50 65 95/68 L 09/16/23 14:35 64 90/55 L 09/16/23 14:20 65 09/16/23 14:05 80 09/16/23 13:55 88 105/52 L 09/16/23 13:39 89 110/65 09/16/23 13:00 09/16/23 13:24 90 115/68 09/16/23 11:00 09/16/23 12:00 98.6 F 84 16 116/79 97 09/16/23 12:00 81 09/16/23 08:00 93 H 09/16/23 08:00 09/16/23 09:00 09/16/23 07:37 98.7 F 84 18 104/71 L 97 09/16/23 06:55 09/16/23 05:00 09/15/23 22:40 98 09/16/23 04:00 98.6 F 66 14 86/54 L 97 09/16/23 02:57 09/16/23 00:00 98.3 F 65 14 93/63 L 97 09/15/23 23:22 71 09/15/23 23:11 87 18 95/65 L 97 09/16/23 01:00 09/15/23 22:00 14 92/63 L 99 09/15/23 21:44 75 105/65 L 98 09/15/23 22:28 97.8 F 73 16 92/63 L 09/15/23 20:58 97.2 F L 74 16 116/85 99 O2 Del Method 09/16/23 18:46 Room Air 09/16/23 17:00 Room Air 09/16/23 16:00 09/16/23 15:00 Room Air 09/16/23 15:15 09/16/23 15:05 09/16/23 15:00 09/16/23 15:28 Room Air 09/16/23 15:30 09/16/23 14:55 09/16/23 14:50 09/16/23 14:35 09/16/23 14:20 09/16/23 14:05 09/16/23 13:55 09/16/23 13:39 09/16/23 13:00 Room Air 09/16/23 13:24 09/16/23 11:00 Room Air 09/16/23 12:00 Room Air 09/16/23 12:00 09/16/23 08:00 09/16/23 08:00 Room Air 09/16/23 09:00 Room Air 09/16/23 07:37 Room Air 09/16/23 06:55 Room Air 09/16/23 05:00 Room Air 09/15/23 22:40 Room Air 09/16/23 04:00 Room Air 09/16/23 02:57 Room Air 09/16/23 00:00 Room Air 09/15/23 23:22 09/15/23 23:11 Room Air 09/16/23 01:00 Room Air 09/15/23 22:00 09/15/23 21:44 09/15/23 22:28 Room Air 09/15/23 20:58 Room Air Intake and Output 09/16/23 09/16/23 09/16/23 07:59 15:59 23:59 Intake Total 810 / 810 Output Total 0 / 0 0 / 0 Balance 0 / 810 0 / 810 810 / 810 Intake: Intake, Oral Amount 810 / 810 Output: Output, Urine Amount 0 / 0 0 / 0 Other: Number of Voids 1 Number of Unmeasured Voids 1 1 Weight 62.596 kg Patient Weight 09/16/23 23:59 Weight 62.596 kg Laboratory Results - last 24 hr 09/15/23 21:00: WBC 10.9 H, RBC 4.74, Hgb 13.5 L, Hct 40.0 L, MCV 84.5, MCH 28.5, MCHC 33.7, RDW 12.9, Plt Count 258, MPV 7.8, Neut % (Auto) 77.0, Lymph % (Auto) 16.8, Mckinley % (Auto) 5.7, Eos % (Auto) 0.3, Baso % (Auto) 0.3, Neut # (Au to) 8.4 H, Lymph # (Auto) 1.8, Mckinley # (Auto) 0.6, Eos # (Auto) 0.0, Baso # (Auto) 0.0, ESR 16 H, Sodium 134 L, Potassium 3.3 L, Chloride 100, Carbon Dioxide 27, Anion Gap 10.3, BUN 9, Creatinine 0.80, Estimated Creat Clear 116, Estimated GFR 112, Est GFR ( Amer) 136, Glucose 106 H, Calcium 8.9, Magnesium 1.9, Total Bilirubin 1.1, AST 49, ALT 30, Alkaline Phosphatase 74, Total Creatine Kinase 218 H, Troponin I 4.79 H, C-Reactive Protein 58.7 H, Total Protein 6.5, Albumin 4.1, Globulin 2.4, Albumin/Globulin Ratio 1.7 09/15/23 21:44: Chlamy pneumoniae PCR TNP, Adenovirus (PCR) Not detected, B. pertussis DNA (PCR) TNP, Coronavirus OC43 (PCR) Not detected, Coronavirus HKU1 (PCR) Not detected, Coronavirus 229E (PCR) Not detected, SARS-CoV-2 (PCR) Not detected, Coronavirus NL63 (PCR) Not detected, Human Metapneumovir PCR Not detected, Influenza A (H1) PCR Not detected, Influ A (H1N1/09) PCR Not detected, Influenza A (H3) PCR Not detected, Influenza Type A (PCR) Not detected, Influenza Type B (PCR) Not detected, M. pneumoniae (PCR) TNP, Parainfluenza 1 (PCR) Not detected, Parainfluenza 2 (PCR) Not detected, Parainfluenza 3 (PCR) Not detected, Parainfluenza 4 (PCR) Not detected, RSV (PCR) Not detected, Entero/Rhino (PCR) Not detected 09/16/23 00:15: Troponin I 15.30 H 09/16/23 03:15: Troponin I 16.70 H 09/16/23 09:12: WBC 5.1 D, RBC 4.57 L, Hgb 13.0 L, Hct 38.5 L, MCV 84.2, MCH 28.4, MCHC 33.7, RDW 12.8, Plt Count 251, MPV 8.6, Neut % (Auto) 51.7, Lymph % (Auto) 38.3, Mckinley % (Auto) 8.1, Eos % (Auto) 1.1, Baso % (Auto) 0.8, Neut # (Auto) 2.7, Lymph # (Auto) 2.0, Mckinley # (Auto) 0.4, Eos # (Auto) 0.1, Baso # (Auto) 0.0, Sodium 138, Potassium 3.7, Chloride 105, Carbon Dioxide 29, Anion Gap 7.7, BUN 6 L D, Creatinine 0.80, Estimated Creat Clear 117, Estimated GFR 112, Est GFR ( Amer) 136, Glucose 93, Calcium 8.7, Total Bilirubin 1.1, AST 78 H D, ALT 29, Alkaline Phosphatase 55, Total Protein 6.0 L, Albumin 3.7, Globulin 2.3, Albumin/Globulin Ratio 1.6 I & O for Labs for Last 24 Hours: Intake & Output 09/13/23 09/14/23 09/15/23 09/16/23 23:59 23:59 23:59 23:59 Intake Total 810 / 810 Output Total 0 / 0 Balance 810 / 810 Weight 61.83 kg 62.596 kg Constitutional: Present no acute distress, average body habitus and cooperative Head: Present atraumatic and normocephalic ENT: Present normal exam Respiratory: Present normal respiratory effort; Absent rhonchi, wheezes or crackles Cardiac: Present Reg Rate and Rhythm; Absent Gallop Comment:: no rub GI: Present soft and normal bowel sounds; Absent distention or tenderness Extremities: Present normal inspection and full ROM Skin: Present intact; Absent erythema Neuro: Present Grossly Intact and moves all extremities Assessment and Plan *Assessment and plan (1) Elevated troponin: Status: Acute Category: Medical Code(s): R79.89 - Other specified abnormal findings of blood chemistry (2) Non-STEMI (non-ST elevated myocardial infarction): Status: Acute Category: Medical Code(s): I21.4 - Non-ST elevation (NSTEMI) myocardial infarction (3) Viral myocarditis: Status: Acute Qualifiers: Chronicity: acute Qualified Code(s): I40.0 - Infective myocarditis Category: Medical Code(s): B33.22 - Viral myocarditis Plan 32 year old male presented to the ED for c/o CP that started at 1 p.m. The pt states the pain was located in the center of his chest. PMHX of GERD. Pt states he had a 24 hour GI virus over the weekend. He was having nausea, vomiting, and diarrhea. The pt his ED workup reveals a ESR of 16, potassium of 3.3, CK of 218, CRP of 58.7. His initial troponin is 4.79. His chest xray is unremarkable. The ED physician consulted the Hospitalist team for further medical management. The pt will have an echo ordered for the morning and a cardiology consult placed. He was given colchicine and morphine in the ED. The pt reports taking Motrin prior to arrival to ED. MYOPERICARDITIS -Patient with elevated troponins. Cardiology consulted, recommend CCTA to rule out ischemia and coronary artery disease. Echo obtained showing EF of 45% with diffuse hypokinesis concerning for myocarditis. Will consider cardiac MRI after CCTA to evaluate for myocarditis. -Continue colchicine and ibuprofen for suspected viral myocarditis. -Discussed case with cardiology, further recommendations pending findings from imaging. Patient clinically showing improvement. HYPOKALEMIA: Potassium normalized this morning. Potassium 3.7, creatinine 0.8, BUN 6. Repeat CBC, CMP, magnesium ordered for the morning. FULL CODE Regular diet DVT: SCD
--- NOTE | 2023-09-16 23:01 | CA_ITS ---
APPROVED REPORT EXAM: Comprehensive 2D, Doppler, and color-flow Echocardiogram Correctional Security Officer: Yessica Velazquez CRT Ht: 5 ft 7 in Wt: 136lbs BSA: 1.72 BP: 95/65 mmHg Rhythm: NSR Indications: Chest Pain, elevated troponin 2D Dimensions LA Volume 23.50 mL LA Volume Index 13.40 mL/m2 (M/F) 16-34 M-Mode Dimensions RVDd 2.34 cm (0.9-2.6) LA Diam 2.83 cm (1.9-4.0) LVDd 4.31 cm (3.5-5.7) LVDs 2.90 cm (3.5-5.7) IVSd 0.88 cm (0.6-1.1) PWd 0.79 cm (0.6-1.1) EF (Teich) 61.40% FS 32.70% EDV (Teich) 83.50 mL ESV (Teich) 32.20 mL LV Diastology E Decel Time 110 (160-240 msec) E/A Ratio 1.42 MED A' 9.70 cm/s LAT A' 13.90 cm/s Aortic Valve AO Peak GR. 4.00 mmHg Mitral Valve MV A Velocity 49.0 (40-130 cm/s) E/A Ratio 1.42 Pulmonary Valve PV Peak Velocity 86.0 (50-150 cm/s) Tricuspid Valve TR P. Velocity 160.00 cm/s RAP Estimate 10.00 mmHg RVSP 20.20 mmHg Left Ventricle The left ventricle is normal size. The left ventricular systolic function is mildly reduced. There is normal left ventricular wall thickness. There is mild global hypokinesis present. Grade 1 diastolic dysfunction is present. LVEF is 45-50%. Right Ventricle The right ventricle is normal size. The right ventricular systolic function is normal. Atria The left atrium size is normal. The right atrium size is normal. There is no Doppler evidence of interatrial shunt. Aortic Valve The aortic valve opens well. There is no aortic valvular stenosis. Trace aortic regurgitation. Mitral Valve The mitral valve is normal in structure. No evidence of mitral valve stenosis. Trace mitral regurgitation. Tricuspid Valve The tricuspid valve leaflets are thin and pliable. Trace tricuspid regurgitation. There is insufficient TR jet to estimate RVSP. Pulmonic Valve The pulmonary valve is normal in structure. Trace pulmonic regurgitation. Great Vessels The aortic root is normal in size. The ascending aorta is normal in size. IVC is normal in size and collapses >50% with inspiration. Pericardium There is no pericardial effusion. Other Information Study Quality: Adequate Conclusion Mildly reduced LV systolic function (LVEF 45-50%). Mild global hypokinesis present. No evidence of regional wall motion abnormalities. No significant valvular stenosis or regurgitation. No evidence of pericardial effusions. Electronically signed by : Patti Meeks MD 09/16/2023 19:00:07
[2023-09-17] VITALS (8 sets, daily range): BP systolic 99–122; BP diastolic 56–79; PULSE 66–89; RESP 16–19; TEMP 36.6–36.9; O2SAT 96–100; BMI 21.5
[2023-09-17 06:58] LABS: Basophils % 0.8 % (0.1-2.0); Eosinophils # 0.1 K/mm3 (0.0-0.4); Eosinophils % 1.7 % (0.1-12.0); Hematocrit 37.6 % (42.0-52.0); Hemoglobin 12.4 g/dL (14.1-18.0); Lymphocytes # 2.2 K/mm3 (0.7-4.5); Lymphocytes % 40.9 % (10-50); Mean Corpuscular Hemoglobin 28.5 pg (27.0-31.2); Mean Corpuscular Volume 86.2 fl (80-94); Mean Platelet Volume 8.2 fl (7.4-10.4); Monocytes # 0.3 K/mm3 (0.1-1.0); Neutrophils # 2.7 K/mm3 (1.8-7.8); Neutrophils % 50.6 % (37.0-80.0); Platelet Count 252 K/mm3 (142-424); Red Blood Count 4.36 M/mm3 (4.60-6.20); Red Cell Distribution Width 12.9 % (11.5-17.5); White Blood Count 5.3 K/mm3 (4.8-10.8)
[2023-09-17 07:03] LABS: Alanine Aminotransferase 28 U/L (12-78); Albumin Level 3.5 g/dl (3.5-5.0); Albumin/Globulin Ratio 1.5 (1.1-1.8); Alkaline Phosphatase 61 U/L (38-126); Anion Gap 9.1 mEq/L (5-15); Aspartate Amino Transferase 46 U/L (17-59); Bilirubin,Total 0.8 mg/dl (0.2-1.3); Blood Urea Nitrogen 15 mg/dl (9-20); Calcium 8.4 mg/dl (8.4-10.2); Carbon Dioxide 27 mmol/L (22.0-30.0); Chloride 107 mmol/L (98-107); Creatinine Clearance Estimated 117 mL/min (50-200); Estimated Glomerular Filt Rate 112 ml/min (>60); GFR (African American) 136 ML/MIN (>60); Globulin 2.4 g/dL (1.3-3.2); Glucose 86 mg/dl (74-100); Potassium 4.1 mmoL/L (3.5-5.1); Sodium 139 mmol/L (136-145); Total Protein,Serum 5.9 g/dl (6.3-8.2)
[2023-09-17 07:35] LABS: Magnesium 2.3 mg/dl (1.6-2.3)
[2023-09-17 07:49] LABS: Erythrocyte Sedimentation Rate 22 mm/hr (0-15)
[2023-09-17 07:57] LABS: C-Reactive Protein 26.7 mg/L (0-4)
--- NOTE | 2023-09-17 08:32 | MR_ITS ---
APPROVED REPORT Bail Bonding Agent: CLINICAL INDICATION Chest pain, troponinemia, recent flulike symptoms. Evaluation for myocarditis TECHNIQUE Image Acquisition: Cardiac magnetic resonance (CMR) was performed on Siemens Espree MRI 1.5T scanner. Software platform sequences were performed using the Siemens Digbyo MR B19 platform. A set of three-plane, low-resolution, large [id number] localizers were initially acquired. Then axial, coronal, sagittal TrueFISP, as well as axial HASTE images, were obtained. These were followed by gated TrueFISP breathold cinematic sequences obtained in the short axis with 8 mm slices and 2 mm gaps, 2-chamber (vertical long axis), 3-chamber, 4-chamber (horizontal long axis). A bolus of contrast was injected intravenously with first-pass sequences obtained in the short axis and four-chamber planes. After approximately 10 minutes, a TI production internship sequence was performed to determine the optimal TI time. Using the optimized TI time, delayed contrast enhancement segmented inversion???recovery TurboFLASH sequences were obtained in the short axis, 2-chamber, 3-chamber, and 4-chamber projections. 2D-velocity phase mapping was performed. Functional parameters were calculated by offline analysis on an independent workstation ([employer], [employer]). Contrast: ProHance??? (Gadoteridol) FINDINGS MORPHOLOGY AND FUNCTION Left ventricle: The left ventricle is normal in size. The indexed left ventricular end-diastolic volume (LVEDVi) is 79 ml/m2 (reference range 57-105 ml/m2 in males, 56-96 ml/m2 in females). There is mild reduction in left ventricular systolic function. There is normal left ventricular wall thickness. Mild global hypokinesis is present. No regional wall motion abnormalities are noted. LVEF is calculated at 49.4% (reference range 57-77%). Right ventricle: The right ventricle is normal in size. The indexed right ventricular end-diastolic volume (RVEDVi) is 67 ml/m2 (reference range 61-121 ml/m2 in males, 48-112 ml/m2 in females). There is mild reduction in right ventricular systolic function. RVEF is calculated at 44.7% (reference range 52-72% in males, 51-71% in females). Atria: The left atrium is normal in size. The maximum indexed left atrial volume is 35 ml/m2 (reference range 26-52 ml/m2 in males, 27-53 ml/m2 in females). The right atrium is normal in size. The maximum indexed right atrial volume is 28 ml/m2 (reference range 18-90 ml/m2). Aorta: The diameter of the aortic annulus is normal, measuring 24 mm (coronal view reference range 21-30 mm in males, 19-27 mm in females). The diameter of the aortic sinus is normal, measuring 29 mm (coronal view reference range 25-42 mm in males, 24-36 mm in females). The diameter of the sinotubular junction is normal, measuring 20 mm (coronal view reference range 18-32 mm in males, 18-28 mm in females). The diameters of the ascending and descending thoracic aorta are normal. Main pulmonary artery: The main pulmonary artery diameter is normal. Pericardium: The pericardial thickness is normal. The pericardial thickness measures 1.7 cm (normal < 4.0 cm). There is no pericardial effusion. VALVES The valvular morphologies in the visualized sequences appear normal. There is no significant valvular stenosis or regurgitation of the mitral, aortic, tricuspid, or pulmonic valve noted visually. Systolic anterior motion of the mitral valve is not visualized. Ratio of pulmonary to systemic flow, Qp:Qs ratio = 1.1 (normal < or = 1.2), demonstrating no evidence of hemodynamically significant shunt. TISSUE CHARACTERIZATION Resting Perfusion: Normal myocardial blood flow at rest. No evidence of resting hypoperfusion. Myocardial Fibrosis and/or edema: Abnormal gadolinium kinetics are present. There is presence of mid myocardial and epicardial late gadolinium enhancement (LGE) present in the inferior and anterior LV bases. There is also diffuse pericardial LGE present. OTHER No other significant findings are noted. However, this exam is focused on the cardiac structure and function. IMPRESSION Normal LV size with mild reduction in LV systolic function. LVEDVi= 79ml/m2 and LVEF= 49.4%. Normal RV size with mild reduction in RV systolic function. RVEDVi= 67 ml/m2 and RVEF= 44.7%. No atrial enlargement. No CMR evidence of myocardial scarring, infarction, or necrosis. No evidence of myocardial edema or inflammation. Perfusion analysis demonstrates normal blood flow at rest with no evidence of resting hypoperfusion. Ratio of pulmonary to systemic flow, Qp:Qs ratio = 1.1 (normal < or = 1.2), demonstrating no evidence of hemodynamically significant shunt. Overall, this CMR demonstrates biventricular reduction in systolic function. The LGE pattern, including presence of mixed subepicardial and mid myocardial, as well as pericardial LGE, is most suggestive of myopericarditis. COMPARISON None CRITICAL RESULT None COMMUNICATION The above findings were verbally relayed to the inpatient cardiology consult team on the day of CMR on 09/17/2023. The findings of this cardiac MR were reviewed, reported, and signed by Roland Meeks MD (Clinical Technician). Conclusion Electronically signed by : Patti Meeks MD 10/08/2023 12:34:45
[2023-09-17] MEDS: COLCHICINE 0.6MG TABLET 0.599999999999999978 MG PO (08:33)
[2023-09-17] MEDS: diazePAM 5MG TABLET 10 MG PO (11:27)
--- NOTE | 2023-09-17 11:53 | P.DS_ITS ---
General Admission date:: 09/15/23 Discharge date: 09/17/23 HPI HPI HPI: 32 year old male presented to the ED for c/o CP that started at 1 p.m. The pt states the pain was located in the center of his chest. PMHX of GERD. Pt states he had a 24 hour GI virus over the weekend. He was having nausea, vomiting, and diarrhea. The pt his ED workup reveals a ESR of 16, potassium of 3.3, CK of 218, CRP of 58.7. His initial troponin is 4.79. His chest xray is unremarkable. The ED physician consulted the Hospitalist team for further medical management. The pt will have an echo ordered for the morning and a cardiology consult placed. He was given colchicine and morphine in the ED. The pt reports taking Motrin prior to arrival to ED. Hospital Course Hospital Course Hospital Course: 32 year old male presented to the ED for c/o CP that started at 1 p.m. The pt states the pain was located in the center of his chest. PMHX of GERD. Pt states he had a 24 hour GI virus over the weekend. He was having nausea, vomiting, and diarrhea. The pt his ED workup reveals a ESR of 16, potassium of 3.3, CK of 218, CRP of 58.7. His initial troponin is 4.79. His chest xray is unremarkable. The ED physician consulted the Hospitalist team for further medical management. The pt will have an echo ordered for the morning and a cardiology consult placed. He was given colchicine and morphine in the ED. The pt reports taking Motrin prior to arrival to ED. showed gradual improvement in symptoms. Stable on room air. Meeting criteria for discharge home to continue medical management of his myocarditis. Plan for close follow-up with cardiology. Problems addressed as follows: MYOPERICARDITIS -Patient with elevated troponins. Cardiology consulted, CCTA obtained that ruled out coronary artery disease. MRI obtained showing myocarditis. Echo showing EF of 45% with diffuse hypokinesis. Cardiology assisted with care during admission. Initiated on colchicine and ibuprofen. Will continue ibuprofen for 1 month and colchicine for 3 months. Initiated as well on metoprolol and lisinopril low-dose prior to discharge. Tolerating well with blood pressure appropriate. Case consistent with viral myocarditis given preceding illness. HYPOKALEMIA: Potassium initially low, normalized with repletion. Recommend repeat labs with CBC, CMP, magnesium and follow-up Total time spent on discharge 32 minutes in counseling, documentation, chart review, and direct care with patient. Exam Data for Last 24 hours Vital signs and Labs for Last 24 Hours: Temp Pulse Resp BP Pulse Ox O2 Del Method 98.4 F 85 16 118/75 97 Room Air 09/17/23 11:18 09/17/23 11:18 09/17/23 11:18 09/17/23 11:18 09/17/23 11:18 09/17/23 11:18 Laboratory Results - last 24 hr 09/17/23 05:33: WBC 5.3, RBC 4.36 L, Hgb 12.4 L, Hct 37.6 L, MCV 86.2, MCH 28.5, MCHC 33.0, RDW 12.9, Plt Count 252, MPV 8.2, Neut % (Auto) 50.6, Lymph % (Auto) 40.9, Maverick % (Auto) 6.0, Eos % (Auto) 1.7, Baso % (Auto) 0.8, Neut # (Auto) 2.7, Lymph # (Auto) 2.2, Maverick # (Auto) 0.3, Eos # (Auto) 0.1, Baso # (Auto) 0.0, ESR 22 H, Sodium 139, Potassium 4.1, Chloride 107, Carbon Dioxide 27, Anion Gap 9.1, BUN 15 D, Creatinine 0.80, Estimated Creat Clear 117, Estimated GFR 112, Est GFR ( Amer) 136, Glucose 86, Calcium 8.4, Magnesium 2.3 D, Total Bilirubin 0.8, AST 46 D, ALT 28, Alkaline Phosphatase 61, C-Reactive Protein 26.7 H D, Total Protein 5.9 L, Albumin 3.5, Globulin 2.4, Albumin/Globulin Ratio 1.5 I & O for Last 24 hours: Intake & Output 09/14/23 09/15/23 09/16/23 09/17/23 23:59 23:59 23:59 23:59 Intake Total 810 / 1010 440 / 440 Output Total 0 / 0 Balance 810 / 1010 440 / 440 Weight 61.83 kg 62.596 kg 62.199 kg Constitutional Constitutional: no acute distress and average body habitus *Routine HEENT Exam Head: Present normocephalic Eye: Present EOMI and PERRL ENT: Present mucous membranes moist *Routine Neck Exam Neck: Present supple; Absent lymphadenopathy *Routine Respiratory Exam Respiratory: Present CTA bilaterally *Routine Cardiovascular Exam Cardiovascular: Present RRR; Absent gallop or rubs *Routine Abdominal Exam Abdominal: Present soft and normoactive bowel sounds; Absent tenderness *Routine Rectal Exam Patient deferred: visual exam *Routine Exam Patient deferred: penile exam *Routine Extremities Exam Extremities: Absent cyanosis, clubbing or edema *Routine Skin Exam Skin: Present warm; Absent rash *Routine Neurological Exam Neurological: Present alert, oriented X3 and moving all extremities; Absent altered mental status Results Data Completed and Pending Labs on day of discharge: Labs from last 24 hours 09/17/23 05:33 WBC 5.3 RBC 4.36 L Hgb 12.4 L Hct 37.6 L MCV 86.2 MCH 28.5 MCHC 33.0 RDW 12.9 Plt Count 252 MPV 8.2 Neut % (Auto) 50.6 Lymph % (Auto) 40.9 Maverick % (Auto) 6.0 Eos % (Auto) 1.7 Baso % (Auto) 0.8 Neut # (Auto) 2.7 Lymph # (Auto) 2.2 Maverick # (Auto) 0.3 Eos # (Auto) 0.1 Baso # (Auto) 0.0 ESR 22 H Sodium 139 Potassium 4.1 Chloride 107 Carbon Dioxide 27 Anion Gap 9.1 BUN 15 D Creatinine 0.80 Estimated Creat Clear 117 Estimated GFR 112 Est GFR ( Amer) 136 Glucose 86 Calcium 8.4 Magnesium 2.3 D Total Bilirubin 0.8 AST 46 D ALT 28 Alkaline Phosphatase 61 C-Reactive Protein 26.7 H D Total Protein 5.9 L Albumin 3.5 Globulin 2.4 Albumin/Globulin Ratio 1.5 DS: Diagnosis Discharge Diagnosis (1) Elevated troponin: Status: Acute Code(s): R79.89 - Other specified abnormal findings of blood chemistry (2) Non-STEMI (non-ST elevated myocardial infarction): Status: Acute Code(s): I21.4 - Non-ST elevation (NSTEMI) myocardial infarction (3) Viral myocarditis: Status: Acute Code(s): B33.22 - Viral myocarditis Qualifiers: Chronicity: acute Qualified Code(s): I40.0 - Infective myocarditis Meds Home Medications and Allergies Home Medications Medication Instructions Recorded Confirmed Type colchicine 0.6 mg tablet (Colcrys) 0.6 mg PO DAILY 30 days #30 tabs 09/17/23 Rx ibuprofen 600 mg tablet 600 mg PO Q8HP PRN Mild To 09/17/23 Rx Moderate Pain (1-6) 7 days #20 tabs lisinopril 5 mg tablet 5 mg PO DAILY 30 days #30 tabs 09/17/23 Rx metoprolol succinate 25 mg 25 mg PO DAILY 30 days #30 tabs 09/17/23 Rx tablet,extended release 24 hr New Prescriptions to Start Prescriptions: colchicine [Colcrys] Chilo Morris ibuprofen Alexandra,Chilo lisinopril Alexandra,Chilo metoprolol succinate Chilo Morris Allergies Allergy/AdvReac Type Severity Reaction Status Date / Time No Known Allergies Allergy Verified 05/18/20 17:39 Discharge Plan Disposition Patient Disposition: Home, Self-Care Condition: Fair Discharge Order Discharge Orders: Discharge Order (Routine); Ordered 09/17/23 Ordered By: Chilo Morris Follow up Plan Follow up with: ProviderTheresa MD [Primary Care Provider] - Enter time for follow up Roland Meeks MD [Staff Physician] - Enter time for follow up Prescriptions/Medication Reconciliation: New colchicine [Colcrys] 0.6 mg Tablet 0.6 mg PO DAILY 30 Days Qty: 30 2RF ibuprofen 600 mg Tablet 600 mg PO Q8HP PRN (Reason: Mild To Moderate Pain (1-6)) 7 Days Qty: 20 0RF lisinopril 5 mg Tablet 5 mg PO DAILY 30 Days Qty: 30 0RF metoprolol succinate 25 mg Tablet Extended Release 24 Hr 25 mg PO DAILY 30 Days Qty: 30 0RF Problem Reconciliation Problems Reviewed?: Yes Patient Discharge Instructions ACTIVITY: Limited activity and No heavy lifting DIET: continue same diet Patient Instructions: Myocarditis -- Adult Providers Primary Care Provider: Provider,Referral Admit Provider: Lorraine Gambino Attending Provider: Lorraine Gambino
[2023-09-17] MEDS: GADOTERIDOL INJ 17ML SYRINGE 15 ML IV (12:59)
[2023-09-17] MEDS: SODIUM CHLORIDE 0.9% 10ML SYR (RAD ONLY) 10 ML IV (12:59)
[2023-09-17] MEDS: SODIUM CHLORIDE 0.9% 50ML BAG 50 ML IV (12:59)
[2023-09-17] MEDS: LISINOPRIL 5MG TABLET 5 MG PO (14:02)
[2023-09-17] MEDS: METOPROLOL SUCCINATE XL 25MG TABLET 25 MG PO (14:02)
--- NOTE | 2023-09-17 14:47 | P.PN_ITS ---
Subjective Subjective Date: 09/17/23 Time: 12:30 Principal diagnosis: myocarditis Interval history: The patient states that he feels much better today. He denies any chest pain or pressure. He denies any shortness of breath or edema. He denies any fever, chills, nausea, vomiting, diarrhea, PND or orthopnea. CCTA showed no coronary artery disease and a 0 calcium score. Exam Data for Last 24 hours Vital signs and Labs for Last 24 Hours: Temp Pulse Resp BP Pulse Ox O2 Del Method 98.4 F 89 16 103/64 L 97 Room Air 09/17/23 11:18 09/17/23 14:00 09/17/23 11:18 09/17/23 14:00 09/17/23 11:18 09/17/23 12:56 Laboratory Results - last 24 hr 09/17/23 05:33: WBC 5.3, RBC 4.36 L, Hgb 12.4 L, Hct 37.6 L, MCV 86.2, MCH 28.5, MCHC 33.0, RDW 12.9, Plt Count 252, MPV 8.2, Neut % (Auto) 50.6, Lymph % (Auto) 40.9, [place] % (Auto) 6.0, Eos % (Auto) 1.7, Baso % (Auto) 0.8, Neut # (Auto) 2.7, Lymph # (Auto) 2.2, [place] # (Auto) 0.3, Eos # (Auto) 0.1, Baso # (Auto) 0.0, ESR 22 H, Sodium 139, Potassium 4.1, Chloride 107, Carbon Dioxide 27, Anion Gap 9.1, BUN 15 D, Creatinine 0.80, Estimated Creat Clear 117, Estimated GFR 112, Est GFR ( Amer) 136, Glucose 86, Calcium 8.4, Magnesium 2.3 D, Total Bilirubin 0.8, AST 46 D, ALT 28, Alkaline Phosphatase 61, C-Reactive Protein 26.7 H D, Total Protein 5.9 L, Albumin 3.5, Globulin 2.4, Albumin/Globulin Ratio 1.5 I & O for Last 24 hours: Intake & Output 09/14/23 09/15/23 09/16/23 09/17/23 23:59 23:59 23:59 23:59 Intake Total 810 / 1010 680 / 680 Output Total 0 / 0 Balance 810 / 1010 680 / 680 Weight 136 lb 5 oz 138 lb 137 lb 2 oz Constitutional Constitutional: no acute distress and average body habitus *Routine HEENT Exam Head: Present normocephalic and atraumatic ENT: Present mucous membranes moist *Routine Neck Exam Neck: Present supple, full ROM and normal carotid upstroke; Absent JVD, carotid bruit or lymphadenopathy *Routine Respiratory Exam Respiratory: Present CTA bilaterally, normal respiratory effort, able to speak in complete sentences and symmetric chest movement *Routine Cardiovascular Exam Cardiovascular: Present RRR, Normal S1 and Normal S2; Absent murmur or gallop *Routine Abdominal Exam Abdominal: Present soft and normoactive bowel sounds; Absent tenderness, d istended or organomegaly *Routine Extremities Exam Extremities: Present full ROM, pulses intact and normal capillary refill; Absent cyanosis, clubbing or edema *Routine Skin Exam Skin: Present intact and warm; Absent erythema *Routine Neurological Exam Neurological: Present alert, oriented X3 and CN II-XII intact; Absent sensory deficit or motor deficit Routine Psychiatric Exam Psychiatric: Present normal affect Progress Note: A&P Assessment and plan (1) Elevated troponin: Status: Acute (2) Non-STEMI (non-ST elevated myocardial infarction): Status: Acute (3) Viral myocarditis: Status: Acute (4) Cardiomyopathy: Status: Acute Assessment and Plan Assessment and Plan for All Diagnoses:: Plan: 1. The patient presented to the emergency department chest pain. He was found to have an elevated troponin. CCTA showed no coronary artery disease and a calcium score of 0. 2. Echocardiogram shows an ejection fraction of 45% with diffuse hypokinesis concerning for myocarditis. 3. Will plan to proceed with cardiac MRI today to further evaluate for the viral myocarditis. 4. Continue colchicine and ibuprofen for the viral myocarditis. 5. His blood pressure is well-controlled. 6. His LDL goal is less than 100. 7. Further recommendations will be made pending the patient's response to treatment and the results of his cardiac MRI today. Thank you for the opportunity to help participate in the care of this patient. All recommendations and orders are per Dr. Meeks. Addendum: Cardiac MRI did show evidence of myocarditis and pericarditis. Estimated ejection fraction is 48%. Continue colchicine 0.6 mg p.o. twice daily for 3 months. Ibuprofen 400 mg 3 times daily for 1 week. Start Toprol-XL 25 mg daily due to the myocarditis and cardiomyopathy. Start lisinopril 5 mg p.o. daily due to the myocarditis and cardiomyopathy. The patient can be discharged home today on the colchicine, ibuprofen, Toprol an d lisinopril. He will need to follow-up in cardiology clinic next week.
--- NOTE | 2023-09-19 11:54 | CARE MANAGER ---
Contacted patient related to hospital discharge. He states he feels well. He made an appointment with cardiology but hasn't picked out someone as his PCP. He states he has the list and will do it. He denies questions or concerns. JUANPABLO Levi
== END 2023-09-17 16:45 | disposition home or self-care (01) | DRG 280 ==
LOC: ER 22:18 → ICU 22:31
PROVIDERS: Internal Medicine; Internal Medicine Adolescent Medicine; Nurse Practitioner Critical Care Medicine; Admitting Provider Internal Medicine; Emergency Provider Student in an Organized Health Care Education/Training Program; Visit Provider Internal Medicine
DX: I21.4 Non-ST elevation (NSTEMI) myocardial infarction (principal); I40.0 Infective myocarditis; E87.6 Hypokalemia; K21.9 Gastro-esophageal reflux disease without esophagitis
CPT/HCPCS: 36415; 71046; 75561; 75571; 75574; 80053; 82550; 83735; 84484; 85025; 85651; 86140; 87581; 87632; 87635; 87798; 93005; 93306; 99291; A9576; J2405; Q9967

== ENCOUNTER 2023-10-06 15:01 | Outpatient (CLI) | payer BC, SELFPAY ==
[2023-10-06 16:01] LABS: Alanine Aminotransferase 39 U/L (12-78); Albumin Level 4.6 g/dl (3.5-5.0); Albumin/Globulin Ratio 2.2 (1.1-1.8); Alkaline Phosphatase 63 U/L (38-126); Anion Gap 8.4 mEq/L (5-15); Aspartate Amino Transferase 29 U/L (17-59); Bilirubin,Total 1.1 mg/dl (0.2-1.3); Blood Urea Nitrogen 16 mg/dl (9-20); Calcium 9.4 mg/dl (8.4-10.2); Carbon Dioxide 30 mmol/L (22.0-30.0); Chloride 103 mmol/L (98-107); Estimated Glomerular Filt Rate 98 ml/min (>60); GFR (African American) 118 ML/MIN (>60); Globulin 2.1 g/dL (1.3-3.2); Glucose 92 mg/dl (74-100); Potassium 3.4 mmoL/L (3.5-5.1); Sodium 138 mmol/L (136-145); Total Protein,Serum 6.7 g/dl (6.3-8.2)
[2023-10-06 16:10] LABS: C-Reactive Protein < 0.3 mg/L (0-4)
[2023-10-06 16:34] LABS: Erythrocyte Sedimentation Rate 6 mm/hr (0-15)
== END 2023-10-06 23:59 ==
LOC: LAB 15:02
PROVIDERS: PCP Internal Medicine; Visit Provider Internal Medicine
DX: I40.0 Infective myocarditis (principal); I31.9 Disease of pericardium, unspecified; I21.4 Non-ST elevation (NSTEMI) myocardial infarction
CPT/HCPCS: 36415; 80053; 85651; 86140

== ENCOUNTER 2023-11-14 08:32 | Outpatient (CLI) | payer BC, SELFPAY ==
[2023-11-14 09:18] LABS: Basophils # 0.1 K/mm3 (0-0.2); Basophils % 0.9 % (0.1-2.0); Eosinophils # 0.1 K/mm3 (0.0-0.4); Eosinophils % 1.6 % (0.1-12.0); Hematocrit 42.8 % (42.0-52.0); Hemoglobin 14.1 g/dL (14.1-18.0); Lymphocytes # 2.2 K/mm3 (0.7-4.5); Lymphocytes % 39.8 % (10-50); Mean Corpuscular Hemoglobin 28.1 pg (27.0-31.2); Mean Corpuscular Volume 84.9 fl (80-94); Mean Platelet Volume 7.8 fl (7.4-10.4); Monocytes # 0.4 K/mm3 (0.1-1.0); Monocytes % 6.8 % (1.7-9.3); Neutrophils # 2.8 K/mm3 (1.8-7.8); Neutrophils % 50.9 % (37.0-80.0); Platelet Count 325 K/mm3 (142-424); Red Blood Count 5.04 M/mm3 (4.60-6.20); Red Cell Distribution Width 13.7 % (11.5-17.5); White Blood Count 5.4 K/mm3 (4.8-10.8)
== END 2023-11-14 23:59 | disposition home or self-care (01) ==
LOC: LAB 08:33
PROVIDERS: PCP Internal Medicine; Visit Provider Internal Medicine
DX: Z00.00 Encounter for general adult medical examination without abnormal findings (principal); I10 Essential (primary) hypertension
CPT/HCPCS: 36415; 85025

== ENCOUNTER 2024-01-14 08:38 | Outpatient (CLI) | payer BC, SELFPAY ==
--- NOTE | 2024-01-14 08:39 | CA_ITS ---
APPROVED REPORT EXAM: Comprehensive 2D, Doppler, and color-flow Echocardiogram Casting Machine Operator: Monika Reza RVT Ht: 5 ft 7 in Wt: 142lbs BSA: 1.75 BP: 129/77 mmHg Indications: F/Y MYOCARDITIS,EF 45-50% ON 09/15/23 2D Dimensions LA Volume 28.50 mL LA Volume Index 16.29 mL/m2 (M/F) 16-34 M-Mode Dimensions RVDd 2.57 cm (0.9-2.6) LA Diam 2.79 cm (1.9-4.0) LVDd 4.11 cm (3.5-5.7) LVDs 2.84 cm (3.5-5.7) IVSd 0.40 cm (0.6-1.1) PWd 0.40 cm (0.6-1.1) EF (Teich) 59.00% FS 30.90% EDV (Teich) 74.70 mL TAPSE 2.22 (<1.7) ESV (Teich) 30.60 mL LV Diastology E Decel Time 190 (160-240 msec) E/A Ratio 1.4 Aortic Valve JOSSELIN Index 2.18 cm2/m2 AoV Peak Milton. 100.0 (50-130 cm/s) AO Peak GR. 4.00 mmHg AO Mean GR. 2.00 (<5 mmHg) AO VTI 16.6 (18-25 cm) JOSSELIN (VTI) 3.90 (2.5-4.5 cm2) Mitral Valve MV E Max Milton. 79.0 (40-130 cm/s) MV A Velocity 57.0 (40-130 cm/s) E/A Ratio 1.39 MV PHT 56.0 ms Pulmonary Valve PV Peak Velocity 93.0 (50-150 cm/s) Tricuspid Valve TR P. Velocity 247.00 cm/s RAP Estimate 10.00 mmHg RVSP 34.40 mmHg Left Ventricle The left ventricle is normal size. The left ventricular systolic function is normal. The left ventricular ejection fraction is within the normal range. There is normal left ventricular wall thickness. There is normal LV segmental wall motion. The left ventricular diastolic function is normal. LVEF is 50-55%. Right Ventricle The right ventricle is normal size. The right ventricular systolic function is normal. Atria The left atrium size is normal. The right atrium size is normal. There is no Doppler evidence of interatrial shunt. Aortic Valve The aortic valve opens well. There is no aortic valvular stenosis. No aortic regurgitation is present. Mitral Valve The mitral valve is normal in structure. No evidence of mitral valve stenosis. Trace mitral regurgitation. Tricuspid Valve The tricuspid valve leaflets are thin and pliable. Trace tricuspid regurgitation. There is insufficient TR jet to estimate RVSP. Pulmonic Valve The pulmonary valve is normal in structure. Trace pulmonic regurgitation. Great Vessels The aortic root is normal in size. The ascending aorta is normal in size. IVC is normal in size and collapses >50% with inspiration. Pericardium There is no pericardial effusion. Other Information Study Quality: Adequate Conclusion Normal biventricular systolic function. No significant valvular stenosis or regurgitation. Compared to prior study from 09/16/2023, the LVEF is now recovered. Electronically signed by : Patti Meeks MD 01/20/2024 11:10:33
== END 2024-01-14 23:59 | disposition home or self-care (01) ==
LOC: RT 08:39
PROVIDERS: PCP Internal Medicine; Visit Provider Internal Medicine
DX: I40.0 Infective myocarditis (principal); I31.9 Disease of pericardium, unspecified; I21.4 Non-ST elevation (NSTEMI) myocardial infarction; B33.22 Viral myocarditis
CPT/HCPCS: 93306

== ENCOUNTER 2024-05-04 12:55 | Outpatient (CLI) | payer BC, SELFPAY ==
--- NOTE | 2024-05-04 12:59 | CA_ITS ---
APPROVED REPORT EXAM: Limited 2D Echocardiogram Senior Communications Specialist: Yessica Velazquez CRT Ht: 5 ft 7 in Wt: 138lbs BSA: 1.73 BP: 128/72 mmHg Indications: ef eval. ef 50-55% 01/14/24, ef 45-50% 09/15/23 f/u myocarditis M-Mode Dimensions RVDd 2.15 cm (0.9-2.6) LA Diam 3.08 cm (1.9-4.0) LVDd 5.34 cm (3.5-5.7) LVDs 3.38 cm (3.5-5.7) IVSd 0.54 cm (0.6-1.1) PWd 0.46 cm (0.6-1.1) EF (Teich) 66.00% FS 36.70% EDV (Teich) 137.70 mL ESV (Teich) 46.80 mL Other Information Study Quality: Fair Conclusion This is a limited TTE to evaluate for LVEF in the setting of prior myocarditis s/p recovery. Limited windows were obtained. The left ventricle is normal in size. There is normal LV wall thickness. There is normal LV systolic function present. No regional wall motion abnormalities are noted. LVEF is 55%. Compared to prior study from 01/2024, the LVEF is overall unchanged and remains normal. Electronically signed by : Patti Meeks MD 05/05/2024 12:51:03
== END 2024-05-04 23:59 | disposition home or self-care (01) ==
LOC: RT 12:56
PROVIDERS: PCP Internal Medicine; Visit Provider Internal Medicine
DX: I40.0 Infective myocarditis (principal); I21.4 Non-ST elevation (NSTEMI) myocardial infarction; I31.9 Disease of pericardium, unspecified
CPT/HCPCS: 93308

== ENCOUNTER 2024-12-17 13:41 | Outpatient (CLI) | payer BC, SELFPAY ==
--- OUTSIDE RECORDS SUMMARY | 2024-12-17 13:43 | XMS_ITS | Data Portability ---
Author Organization [facility] [place] [facility] Address [address] [place] [id number] Care Team Providers Care Safety Companion Name Role Phone BRIANA ANAND Primary Care Provider Assessment No assessment recorded. Plan of Treatment Reminders Order Date Submit Date Provider Last Modified By Organization Details Last Modified Time Details Appointments None recorded. Lab semen analysis (post vasectomy) 2023 025 [facility] (Registration ), [address] [place], [address], 5 10:25:31 Referral None recorded. Procedures vasectomy (PROC) 2023 024 lorraine adams Not available 15:49:01 Surgeries None recorded. Imaging None recorded. Medication Orders tramadol 50 mg tablet 2023 [facility], [address] [place] [address], [id number], 4 17:27:59 Valium 10 mg tablet 2023 024 [facility], [address] [place] [address] [address] [address] [place], [place], [id number], 4 08:30:14 Patient TargetsNo targets recorded. Patient InstructionsNo instructions recorded. Reason for Referral None Reported. Results Created Date Observation Date Name Description Value Unit Range Abnormal Flag Note LastModifiedBy Organization Detail LastModifiedTime 08/13/1908/13/2024 SEMEN CORNELIUS SIS POST VAS semen analysis post vas ABSENT Not Available [facility] ([facility]) [address], [place], [address], 08/13/2024 10:25:31 Result Notes None recorded. Procedures Surgical History Date Name Laterality Status Provider Name and Address Organization Details Recorded Time 06/08/2024 Vasectomy completed BRET ROMERO MD [address], [place], [address], [facility] & [place] 06/08/2024 16:33:11 Imaging Results None recorded. Procedure Notes None recorded. Medical Equipment None Reported. Allergies No known drug allergies Medications Name Sig Start Date Stop Date Status Note LastModified by Organization Details LastModified Time tramadol 50 mg tablet Take 1 tablet every 6 hours by oral route as needed for 3 days. active Not Available Not Available No t Available lisinopril 5 mg tablet TAKE ONE TABLET BY MOUTH EVERY DAY active Not Available Not Available No t Available metoprolol succinate ER 25 mg tablet,exte nded release 24 hr TAKE ONE TABLET BY MOUTH EVERY DAY active Not Available Not Available No t Available diazepam 10 mg tablet TAKE 1 TABLET BY MOUTH NEEDED OR DIRECTED active Not Available Not Available No t Available ibuprofen 600 mg tablet TAKE ONE TABLET BY MOUTH EVERY 8 HOURS NEEDED FOR mild TO moderate pain --TAKE WITH FOOD-- 05/20 completed Not Available Not Available Not Available colchicine 0.6 mg tablet TAKE ONE TABLET BY MOUTH EVERY DAY active Not Available Not Available No t Available Vitals Date Recorded Body height Oxygen saturation Oxygen saturation in Arterial blood by Pulse oximetry Heart rate Body mass index (BMI) Body weight Systolic blood pressure Diastolic blood pressure Provider Name and Address Organization Details Last Updated DateTime 4 170.18 cm 99 % 99 % 84 /min 22.6 kg/m2 03133.7 4 g 142 mm[Hg] 94 mm[Hg] Vidhya Schultz [facility] & [place] 13:12:58 Social History Question Answer Notes LastModified by Organizat ion Details LastModified Time Tobacco Smoking Status Never Smoker Vidhya Schultz [facility], [facility] & [place] 05/20/2024 13:13:38 What Is Your Level Of Caffeine Consumption? Moderate Information not available 05/20/2024 Sex: Unknown Functional Status Question Answer Note LastModified by Organizat ion Details LastModified Time Do you use any illicit or recreational drugs? No Information not available 05/20/2024 What is your level of alcohol consumption? Occasional Information not available 05/20/2024 What is your occupation? [email or web address] Information not available 05/19/2024 Mental Status None recorded. Family History Nothing Reported. Medical History No medical history recorded. Past Encounters Encounter ID Performer Location Encounter Start Date Encounter Closed Date Diagnosis/Indication Diagnosis SNOMED-CT Code Diagnosis ICD10 Code Diagnosis Note [id number] BRET ROMERO MD [facility] [address] [facility] [address] [place] [address] 05/20/2024 13:03:55 05/20/2024 13:25:34 Counseling for elective sterilization done [id number] 34780 Z30.2 I had a long discussion with Mr. Gonzalez today regarding elective sterilizat ion. I reviewed procedure in depth including risks including, but not limited to: Bleeding, infection, scrotal hematoma, injury to adjacent structures such as the testicle, and re-cannula tion. I discussed the typical postoperat mallory recovery along with activity limitation s. The patient was explicitly instructed to continue contracept ion for a minimum of 2 months following the procedure. At that time, sterility must be confirmed by semen analysis prior to the cessation of contracept ion. The patient verbalized his understand ing [id number] BRET ROMERO MD [facility] [address] [facility] [address] [place] [address] 06/08/2024 15:57:25 06/08/2024 16:33:28 Sterilization procedure done [id number] 11507 Z30.2 Patient tolerated the procedure well. He was instructed to apply cold compress today, 20 minutes on/ 20 minutes off. He may shower tomorrow but is instructed not to submerge the incision sites under water for a minimum of 1 week. He may return to light duty tomorrow, but he was instructed to avoid any heavy lifting or straining for the next week. He was instructed to contact our office if he experience s any fever, shortness of breath, uncontroll able pain/swell ing, or signs worrisome for infection (redness, purulent drainage, fever). He was given explicit instructio ns to continue contracept ion until sterility is confirmed on semen analysis is performed in 2 months. Health Concerns Section Related Observation LastModified by Organization Detai ls LastModified Time None Recorded Concern Status LastModified by Organization Details LastModified Time None Recorded Advance Directives Directive None Recorded Payers Insurance Date Sequence Insurance Name Policy Number Policy Riojas Covered Member ID Riojas Member ID Guarantor Name 06/05/2024 1 [id number] CHRISTOPHER CRUZ OF [place] - [employer] [id number] Corbin Gonzalez [id number] Corbinantonio Gonzalez Notes Date Note Type Note Provider Name and Address Organization Details Recorded Time 05/20/2024 text/html 05/20/24 33M presents to clinic requesting elective sterilization via vasectomy. He and his have 2 children ages 16 and 18 years of age. BRET ROMERO MD [address], [place], [address], [place] [facility] & [place] 05/20/2024 13:25:24 06/08/2024 text/html 06/08/24 patient presents to clinic today for vasectomy under local anesthesia.-------- -------05/20/2433M presents to clinic requesting elective sterilization via vasectomy. He and his have 2 children ages 16 and 18 years of age. BRET ROMERO MD [address], [place], [address], [place] [facility] & [place] 06/08/2024 16:34:24
--- OUTSIDE RECORDS SUMMARY | 2024-12-17 13:43 | XMS_ITS | Clinical Summary ---
Author Organization Healthcare Address [address] [place] [address] Care Team Providers Care General Repairer Name Role Phone Unavailable Primary Care Provider Unavailabl e Social History Tobacco Use Types Packs/Day Years Used Date Smoking Tobacco: Never Assessed Sex and Gender Information Value Date Recorded Sex Assigned at Not on file Legal Sex Male 5:57 PM EDT Gender Identity Not on file Sexual Orientation Not on file Last Filed Vital Signs Vital Sign Reading Time Taken Comments Blood Pressure - - Pulse - - Temperature - - Respiratory Rate - - Oxygen Saturation - - Inhaled Oxygen Concentration - - Weight 54.5 kg (120 lb 3.2 oz) 06/16/2009 12:56 PM EST Height 143.5 cm (4' 8.5 ) 06/16/2009 12:56 PM ES T Body Mass Index 26.47 06/16/2009 12:56 PM EST Plan of Treatment Health Maintenance Due Date Last Done Comments [facility]-Depression Screening 1990 [facility]-/Child/Adol SDOH Screenings 1990 [facility]-Varicella Vaccines (1 of 2 - 13+ 2-dose series) 12/04/2003 HPV Vaccines (1 - Male 3-dos e series) 2005 [facility]- SDOH Screenings 2008 [facility]-Adult SDOH Screenings 2008 [facility]-DTaP,Tdap,and Td Vaccine s (1 - Tdap) 2009 [facility]-Hepatitis B Vaccines (1 of 3 - 19+ 3-dose series) 2009 NZR-[id number]-51 Vaccine (1 - 20 24-25 season) 2024 [facility]-Influenza Vaccine (Seaso n Ended) 2025 [facility]-Zoster Vaccines (1 of 2) 2040 [facility]-HIB Vaccines Aged Out No longer e ligible based on patient's age to complete this topic [facility]-Hepatitis A Vaccines Aged Out No longer eligible based on patient's age to complete this topic [facility]-IPV Vaccines Aged Out No longer e ligible based on patient's age to complete this topic [facility]-Pneumococcal Vaccine: Pediatrics (0 to 5 Years) and At-Risk Patients (6 to 49 Years) Aged Out No long er eligible based on patient's age to complete this topic [facility]-Rotavirus Vaccines Aged Out No lo nger eligible based on patient's age to complete this topic
--- NOTE | 2024-12-17 13:44 | CA_ITS ---
APPROVED REPORT EXAM: Comprehensive 2D, Doppler, and color-flow Echocardiogram Cloth Classer: Yaneth Loredo RDCS Ht: 5 ft 7 in Wt: 148lbs BSA: 1.78 BP: 131/75 mmHg Indications: CM M-Mode Dimensions RVDd 1.30 cm (0.9-2.6) LA Diam 2.05 cm (1.9-4.0) LVDd 4.67 cm (3.5-5.7) LVDs 3.44 cm (3.5-5.7) IVSd 0.63 cm (0.6-1.1) PWd 0.60 cm (0.6-1.1) EF (Teich) 51.60% FS 26.30% EDV (Teich) 100.80 mL ESV (Teich) 48.80 mL LV Diastology E Decel Time 150 (160-240 msec) E/A Ratio 0.8 Mitral Valve MV E Max Milton. 57.0 (40-130 cm/s) MV A Velocity 73.0 (40-130 cm/s) E/A Ratio 0.79 MV Mean Gr. 1.70 (<2mmHg) MV PHT 44.0 ms Left Ventricle The left ventricle is normal size. The left ventricular systolic function is normal. The left ventricular ejection fraction is within the normal range. There is normal left ventricular wall thickness. There is normal LV segmental wall motion. The left ventricular diastolic function is normal. LVEF is 60%. Right Ventricle The right ventricle is normal size. The right ventricular systolic function is normal. Atria The left atrium size is normal. The right atrium size is normal. There is no Doppler evidence of interatrial shunt. Aortic Valve The aortic valve is normal in structure. There is no aortic valvular stenosis. No aortic regurgitation is present. Mitral Valve The mitral valve is normal in structure. No evidence of mitral valve stenosis. There is no mitral valve regurgitation noted. Tricuspid Valve Tricuspid valve is grossly normal in structure and function. Trace tricuspid regurgitation. There is insufficient TR jet to estimate RVSP. Pulmonic Valve The pulmonary valve is normal in structure. Trace pulmonic regurgitation. Great Vessels The aortic root is normal in size. IVC is normal in size and collapses >50% with inspiration. Pericardium There is no pericardial effusion. Other Information Study Quality: Fair Conclusion Normal biventricular systolic function (LVEF 60%). No significant valvular stenosis or regurgitation. Electronically signed by : Patti Meeks MD 12/19/2024 20:58:49
== END 2024-12-17 23:59 | disposition home or self-care (01) ==
LOC: RT 13:41
PROVIDERS: PCP Internal Medicine; Visit Provider Internal Medicine
DX: I42.9 Cardiomyopathy, unspecified (principal); I31.9 Disease of pericardium, unspecified
CPT/HCPCS: 93306

== ENCOUNTER 2025-04-26 18:21 | Emergency (ER) | payer BC, SELFPAY ==
[2025-04-26 18:21] VITALS: BP 140/100; PULSE 79; RESP 18; TEMP 36.9; O2SAT 100; BMI 23.3
--- NOTE | 2025-04-26 18:28 | ECG_ITS ---
APPROVED REPORT Exam: Resting ECG HR:73 bpm ECG Measurements Heart Rate 73 AXES WA 150 P 63 QRSd 90 QRS 59 QT 351 T 1 QTc 377 Conclusion Normal sinus rhythm Normal axis Normal intervals No STEMI Baseline artifact in leads II, III, and aVF, V4 through V6 Electronically signed by : Sukhdev Benton, 04/27/2025 02:02:46
[2025-04-26 18:30] VITALS: BP 142/94; PULSE 79; O2SAT 100
--- NOTE | 2025-04-26 18:31 | XR_ITS ---
PROCEDURE INFORMATION: Exam: XR Chest Exam date and time: 04/26/2025 6:44 PM Age: 34 years old Clinical indication: Shortness of breath; Additional info: Cp SOA TECHNIQUE: Imaging protocol: Radiologic exam of the chest. Views: 1 view. COMPARISON: CR XR CHEST 2V 09/15/2023 9:02 PM FINDINGS: Lungs: Normal. Pleural spaces: Normal. Heart/Mediastinum: Normal. Bones/joints: No acute abnormality. IMPRESSION: No acute findings.
--- OUTSIDE RECORDS SUMMARY | 2025-04-26 18:38 | XMS_ITS | Clinical Summary ---
Author Organization Healthcare Address [address] [place] [address] Care Team Providers Care Metallographer Name Role Phone Unavailable Primary Care Provider [...] of 2 - 13+ 2-dose series) 12/04/2003 [facility]- SDOH Screenings 2008 [facility]-Adult SDOH Screenings 2008 [facility]-DTaP,Tdap,and Td Vaccine s (1 - Tdap) 2009 [facility]-Hepatitis B Vaccines (1 of 3 - 19+ 3-dose series) 2009 HPV Vaccines (1 - 3-dose SCD M series) 2017 [id number] Vaccine (1 - 20 24-25 season) 2025 [facility]-Influenza Vaccine (#1) 2025 [facility]-Zoster Vaccines (1 of 2) 2040 [...]
[2025-04-26 18:39] LABS: Hematocrit 42.6 % (42.0-52.0); Hemoglobin 14.2 g/dL (14.1-18.0); Immature Granulocytes % 0.2 %; Mean Corpuscular HGB Conc 33.3 g/dL (31.8-35.4); Mean Corpuscular Hemoglobin 27.2 pg (27.0-31.2); Mean Corpuscular Volume 81.6 fl (80-94); Nucleated Red Blood Cells % 0 %; Platelet Count 385 K/mm3 (142-424); Red Blood Count 5.22 M/mm3 (4.60-6.20); Red Cell Distribution Width-SD 36.7 fL; White Blood Count 8.5 K/mm3 (4.8-10.8)
--- NOTE | 2025-04-26 18:45 | ED_ITS ---
<Statement entered by Sukhdev Benton DO - 04/27/25 01:34> I was consulted by the KIMBERLI, and we discussed the complexity of problems being addressed. I approved the treatment and management plan for this patient's care in the emergency department, thus performing a substantive portion of the medical decision making. Sukhdev Benton DO I did perform bedside POCUS test on the patient. Please see procedure note for details below Limited cardiac ultrasound note Indication: Chest pain Identified cardiac views: [Cardiac parasternal long axis] [Cardiac parasternal short axis] [Cardiac apical four-chamber] [Cardiac subxiphoid] Findings: Cardiac activity: Present Gross wall motion: Normal Pericardial effusion: Absent Right heart strain: Absent Impression: Normal limited cardiac echo Images were saved to permanent archive This study was technically adequate CPT: 59100 This study was performed by me and I personally interpreted all images/videos. Based on my clinical judgment these images were adequate and did not necessitate further imaging. Discharge Plan Disposition Patient Disposition: Home, Self-Care Prescriptions Prescriptions: No Action No Known Home Medications Referrals Follow up/Referrals: Provider,Referral, MD [Referring, Medical] - See instructions Activity Restrictions/Add. Instructions Additional Instructions/Restrictions: Today you were evaluated in the emergency department for chest pain. Your workup is overall unremarkable. 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 Please return to the ED for any worsening of your condition. Clinical Impressions Clinical Impression: Chest pain Instructions Patient Instructions: DI for Atypical Chest Pain Print Language Print Language: Citizen Of [place] Discharge ED Provider: Sukhdev Benton General Adult HPI <Ritu Gasca APRN - Last Filed: 04/26/25 22:04> General Chief complaint: Chest Pain Stated complaint: chest pain Time Seen by Provider: 04/26/25 18:28 Mode of Arrival: Ambulatory Source of Information: Patient Description of Symptoms (Recalled from ER Triage Doc. by RN): patient presents to the ED for chest pain and pressure. this pain started today. 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 History of Present Illness HPI narrative: patient is a 34-year-old male PMHx viral myocarditis (2023), NSTEMI, anxiety, history of alcohol dependence who presents to the ED with complaints of centrally located chest pressure that started earlier today. Patient states he was driving when the chest pain started. He advises that the chest pain does not radiate down his arms, neck or into his back. He is not having any shortness of breath. Patient states he has followed with cardiology as instructed, states that this past May he was released to yearly visits. Related Data Home Medications ?Medication ?Instructions ?Recorded ?Confirmed No Known Home Medications 04/30/2411/12 Allergies Allergy/AdvReac Type Severity Reaction Status Date / Time No Known Allergies Allergy Verified 12/02/24 15:33 PFS <Ritu Gasca APRN - Last Filed: 04/26/25 22:04> [facility] Disclaimer: The information contained in this section may have been updated after the patient was seen, as this information can be updated by other users. Medical History Cardiomyopathy Viral myocarditis Non-STEMI (non-ST elevated myocardial infarction) Elevated troponin Social History Smoking Status: Never smoker alcohol intake: never substance use type: denies use current occupational status: employed and other Travel in the last 8 weeks?: None Have you lived/traveled outside [place] in past 30 days?: No Contact w/someone who lives/traveled outside [place] past 30 days?: No Exposure to someone with infectious disease in past 14 days?: No Do you have a fever (greater than 100.4 F or 38 C)?: No Have you tested positive for COVID-19?: No Exposed to someone with COVID-19 in past 14 days?: No Do you have a sore throat?: No Do you have a cough?: No Do you have any weakness?: No Do you have any diarrhea?: No Are you experiencing any unusual bleeding?: No Do you have any muscle aches/pain?: No Do you have any abdominal pain?: No Are you experiencing loss of taste or smell?: No Other Medical History Have you received the Flu Vaccine for this season: No Have you received the Pneumonia Vaccine: No <Ritu Gasca APRN - Last Filed: 04/26/25 22:04> ROS Obtained: Yes Systems reviewed as appropriate & no additional complaints except as documented Physical Exam <Ritu Gasca APRN - Last Filed: 04/26/25 22:04> General General appearance: alert Head Head exam: atraumatic Eye Eye exam: Present PERRL and EOMI Chest Chest inspection: Present normal inspection Respiratory Respiratory exam: Present normal lung sounds bilaterally Cardiovascular Cardiovascular exam: Present regular rate Abdominal Exam Abdominal exam: Present soft Back Exam Back exam: Present full ROM Neurological Exam Neurological exam: Present alert and oriented X3 Skin Skin exam: Present warm and dry Medical Decision Making <Ritu Gasca APRN - Last Filed: 04/26/25 22:04> Medical Records Screening: Per USPSTF and CDC recommendations, given the prevalence of disease in our region, it is our hospital?s policy to screen for HIV and viral Hepatitis for all patients aged 18 and over and those with ongoing risk factors. Twan Inquiry Pt receiving controlled substance: No Vital Signs: 04/26/25 18:21 04/26/25 18:30 Temperature 98.5 F Temperature Source Oral Pulse Rate 79 Pulse Rate [Right Radial] 79 Respiratory Rate 18 Blood Pressure 142/94 H Blood Pressure [Right Arm] 140/100 H Blood Pressure Mean [Right Arm] 113 Blood Pressure Source [Right Arm] Automatic Cuff Blood Pressure Position [Right Arm] Sitting 02 Sat by Pulse Oximetry 100 100 Oxygen Delivery Method Room Air Lab Data Lab Results 04/26/25 18:30: WBC 8.5, RBC 5.22, Hgb 14.2, Hct 42.6, MCV 81.6, MCH 27.2, MCHC 33.3, RDW 12.3, Plt Count 385, MPV 9.5, Neut % (Auto) 54.1, Lymph % (Auto) 36.0, [place] % (Auto) 7.0, Eos % (Auto) 2.1, Baso % (Auto) 0.6, Neut # (Auto) 4.6, Lymph # (Auto) 3.1, [place] # (Auto) 0.6, Eos # (Auto) 0.2, Baso # (Auto) 0.1, ESR 3, PT 10.5, INR 0.94, APTT 28.3, Sodium 139, Potassium 3.7, Chloride 100, Carbon Dioxide 29, Anion Gap 13.7, BUN 11, Creatinine 0.90, Estimated Creat Clear 111, Estimated GFR 97, Est GFR ( Amer) 117, Glucose 97, Calcium 9.0, Total Bilirubin 1.5 H, AST 40, ALT 50, Alkaline Phosphatase 73, Troponin I < 0.01, C- Reactive Protein 0.7, NT-Pro-B Natriuret Pep < 20.0, Total Protein 7.5, Albumin 4.6, Globulin 2.9, Albumin/Globulin Ratio 1.6, Plasma/Serum Alcohol < 10 04/26/25 21:24: Troponin I < 0.01 04/26/25 18:30 04/26/25 18:30 Orders (Tests/Meds): ED MEDICATIONS Discontinued Medications Generic Name Dose Route Start Last Admin Trade Name Freq PRN Reason Stop Dose Admin Ibuprofen 600 mg 04/26/25 20:27 04/26/25 20:44 Ibuprofen 600 Mg Tablet PO 04/26/25 20:28 600 mg ONCE ONE Administration ORDERS Category Date Time Status CXR --portable [XR chest portable] Stat Exams 04/26/25 18:31 Completed POCUS Point of Care (ER Only) Stat Exams 04/26/25 18:31 Completed BNP [NT Pro Brain Natriuretic Pep.] Stat Lab 04/26/25 18:30 Completed CBC w/Auto Diff [Complete Blood Count Auto Diff] Stat Lab 04/26/25 18:30 Completed CMP [Comprehensive Metabolic Panel] Stat Lab 04/26/25 18:30 Completed CRP [C-Reactive Protein] Stat Lab 04/26/25 18:30 Completed Erythrocyte Sedimentation Rate Stat Lab 04/26/25 18:30 Completed Ethyl Alcohol Stat Lab 04/26/25 18:30 Completed PT/PTT Stat Lab 04/26/25 18:30 Completed Trop I [Troponin I] Stat Lab 04/26/25 18:30 Completed Troponin I Q3H Lab 04/26/25 21:24 Completed Troponin I Q3H Lab 04/27/25 00:45 Ordered UDS [Drug Screen,Urine] Stat Lab 04/26/25 18:31 Ordered Urinalysis and Microscopic Stat Lab 04/26/25 18:31 Ordered Medical Decision Narrative: In summary, patient is a 34-year-old male PMHx viral myocarditis (2023), NSTEMI, anxiety, history of alcohol dependence who presents to the ED with complaints of centrally located chest pressure that started earlier today. Patient states he was driving when the chest pain started. He advises that the chest pain does not radiate down his arms, neck or into his back. He is not having any shortness of breath. Patient states he has followed with cardiology as instructed, states that this past May he was released to yearly visits. He is no longer taking the lisinopril that he was previously taking after the myocarditis. Patient states he has not had any recent illnesses. Upon initial evaluation he is alert, oriented and cooperative. Hemodynamically stable. Physical exam is unremarkable, no chest wall tenderness. Differential diagnosis include ACS, dissection, pulmonary embolism, pneumonia, pneumothorax, electrolyte imbalance, among others. I discussed with patient we will symptomatically manage with ibuprofen. We will obtain cardiac workup and chest x-ray. He is agreeable to plan of care at this time. CBC unremarkable for any leukocytosis, stable H&H. CMP unremarkable for any actionable abnormalities. Troponin <0.01. Alcohol < 10. PT, INR, APTT normal. My informal interpretation of the chest x-ray is no acute findings. PERC 0. Second troponin < 0.01. Records reviewed, Cardiology record from 12/02/2024 summarizes that the CCTA showed no coronary artery disease and a calcium score of 0. Cardiac MRI did show evidence of myocarditis and pericarditis, estimated EF is 48%. Echocardiogram shows an ejection fraction of 55% on 05/04/2024. Plan to recheck in 1 year. Upon reassessment, patient states his condition has improved, states his chest pain has let up. I advised him that his workup is overall unremarkable. We discussed the importance of following up with PCP and cardiology. We discussed return precautions. He remains hemodynamically stable while in the ED. <Sukhdev Benton DO - Last Filed: 04/26/25 19:50> Medical Records Medical records reviewed: Yes I reviewed the patient's medical records. Vital Signs: 04/26/25 18:21 04/26/25 18:30 Temperature 98.5 F Temperature Source Oral Pulse Rate 79 Pulse Rate [Right Radial] 79 Respiratory Rate 18 Blood Pressure 142/94 H Blood Pressure [Right Arm] 140/100 H Blood Pressure Mean [Right Arm] 113 Blood Pressure Source [Right Arm] Automatic Cuff Blood Pressure Position [Right Arm] Sitting 02 Sat by Pulse Oximetry 100 100 Oxygen Delivery Method Room Air Lab Data Lab Results 04/26/25 18:30: WBC 8.5, RBC 5.22, Hgb 14.2, Hct 42.6, MCV 81.6, MCH 27.2, MCHC 33.3, RDW 12.3, Plt Count 385, MPV 9.5, Neut % (Auto) 54.1, Lymph % (Auto) 36.0, [place] % (Auto) 7.0, Eos % (Auto) 2.1, Baso % (Auto) 0.6, Neut # (Auto) 4.6, Lymph # (Auto) 3.1, [place] # (Auto) 0.6, Eos # (Auto) 0.2, Baso # (Auto) 0.1, ESR 3, PT 10.5, INR 0.94, APTT 28.3, Sodium 139, Potassium 3.7, Chloride 100, Carbon Dioxide 29, Anion Gap 13.7, BUN 11, Creatinine 0.90, Estimated Creat Clear 111, Estimated GFR 97, Est GFR ( Amer) 117, Glucose 97, Calcium 9.0, Total Bilirubin 1.5 H, AST 40, ALT 50, Alkaline Phosphatase 73, Troponin I < 0.01, C- Reactive Protein 0.7, NT-Pro-B Natriuret Pep < 20.0, Total Protein 7.5, Albumin 4.6, Globulin 2.9, Albumin/Globulin Ratio 1.6, Plasma/Serum Alcohol < 10 04/26/25 21:24: Troponin I < 0.01 Orders (Tests/Meds): ED MEDICATIONS Discontinued Medications Generic Name Dose Route Start Last Admin Trade Name Freq PRN Reason Stop Dose Admin Ibuprofen 600 mg 04/26/25 20:27 04/26/25 20:44 Ibuprofen 600 Mg Tablet PO 04/26/25 20:28 600 mg ONCE ONE Administration ORDERS Category Date Time Status CXR --portable [XR chest portable] Stat Exams 04/26/25 18:31 Completed POCUS Point of Care (ER Only) Stat Exams 04/26/25 18:31 Completed BNP [NT Pro Brain Natriuretic Pep.] Stat Lab 04/26/25 18:30 Completed CBC w/Auto Diff [Complete Blood Count Auto Diff] Stat Lab 04/26/25 18:30 Completed CMP [Comprehensive Metabolic Panel] Stat Lab 04/26/25 18:30 Completed CRP [C-Reactive Protein] Stat Lab 04/26/25 18:30 Completed Erythrocyte Sedimentation Rate Stat Lab 04/26/25 18:30 Completed Ethyl Alcohol Stat Lab 04/26/25 18:30 Completed PT/PTT Stat Lab 04/26/25 18:30 Completed Trop I [Troponin I] Stat Lab 04/26/25 18:30 Completed Troponin I Q3H Lab 04/26/25 21:24 Completed Troponin I Q3H Lab 04/27/25 00:45 Ordered UDS [Drug Screen,Urine] Stat Lab 04/26/25 18:31 Ordered Urinalysis and Microscopic Stat Lab 04/26/25 18:31 Ordered ECG Data Tracing #1: I reviewed this ECG and interpreted as documented below: EKG personally interpreted by me demonstrates normal sinus rhythm at a rate of 73 bpm, normal axis, no SD prolongation, narrow QRS, no QTc prolongation. No ST elevation or depression. No overt signs of ischemia or arrhythmia. There is artifact present in the inferior leads and definitive P waves in lead I. Critical Care <Ritu Gasca APRN - Last Filed: 04/26/25 22:04> Critical Care Time Critical Care Time: No
[2025-04-26 18:59] LABS: Activated Partial Thrombo Time 28.3 seconds (22.8-30.6); INR 0.94 (0.9-1.1); Prothrombin Time 10.5 seconds (10.1-12.5)
[2025-04-26 19:01] LABS: Albumin Level 4.6 g/dl (3.5-5.0); Chloride 100 mmol/L (98-107); Sodium 139 mmol/L (136-145)
[2025-04-26 19:02] LABS: Potassium 3.7 mmoL/L (3.5-5.1)
[2025-04-26 19:04] LABS: Alanine Aminotransferase 50 U/L (12-78); Albumin/Globulin Ratio 1.6 (1.1-1.8); Alkaline Phosphatase 73 U/L (38-126); Anion Gap 13.7 mEq/L (5-15); Aspartate Amino Transferase 40 U/L (17-59); Bilirubin,Total 1.5 mg/dl (0.2-1.3); Blood Urea Nitrogen 11 mg/dl (9-20); Carbon Dioxide 29 mmol/L (22.0-30.0); Creatinine Clearance Estimated 111 mL/min (50-200); Creatinine,Serum 0.90 mg/dl (0.66-1.25); Estimated Glomerular Filt Rate 97 ml/min (>60); GFR (African American) 117 ML/MIN (>60); Globulin 2.9 g/dL (1.3-3.2); Total Protein,Serum 7.5 g/dl (6.3-8.2)
[2025-04-26 19:05] LABS: Calcium 9.0 mg/dl (8.4-10.2); Glucose 97 mg/dl (74-100)
[2025-04-26 19:13] LABS: NT Pro Brain Natriuretic Pep. < 20.0 pg/mL (0-125)
[2025-04-26 19:29] LABS: Troponin I < 0.01 ng/ml (0.00-0.034)
[2025-04-26 19:38] LABS: C-Reactive Protein 0.7 mg/L (0-4)
[2025-04-26] MEDS: IBUPROFEN 600 MG TABLET PO (20:44)
[2025-04-26 22:00] LABS: Troponin I < 0.01 ng/ml (0.00-0.034)
[2025-04-26 22:09] VITALS: BP 130/90; PULSE 63; RESP 13; TEMP 36.6; O2SAT 100
== END 2025-04-26 22:03 | disposition home or self-care (01) ==
PROVIDERS: Nurse Practitioner; Emergency Provider Student in an Organized Health Care Education/Training Program; PCP Internal Medicine
DX: R07.9 Chest pain, unspecified (principal); Z86.79 Personal history of other diseases of the circulatory system
CPT/HCPCS: 71045; 80053; 80320; 83880; 84484; 85025; 85610; 85651; 85730; 86140; 93005; 99285